=== PATIENT | male | born 1950 | race Caucasian/White ===

== ENCOUNTER → 2017-08-23 11:58 | Outpatient (CLI) | payer OTHER, SELFPAY ==
--- NOTE | 2017-08-23 12:11 | RAD_ITS ---
STUDY: X-RAY - RIGHT SHOULDER REASON FOR EXAM: Male, 66 years old. Bilateral shoulder pain. TECHNIQUE: 4 view(s) of the shoulder. COMPARISON: None. FINDINGS: There is moderate degenerative arthrosis of the glenohumeral articulation. Normal acromioclavicular joint. Normal acromion. Normal humeral head and visualized proximal humerus. The soft tissue structures are unremarkable. Normal visualized pulmonary apex. RAD/Shoulder min 2 Views IMPRESSION: Moderate degree of osteoarthritis of the glenohumeral joint. Electronically Signed: Brian Toledo MD at 20:37 EDT Tel [phone], Service support ,
--- NOTE | 2017-08-23 12:11 | RAD_ITS ---
STUDY: X-RAY - LEFT SHOULDER REASON FOR EXAM: Male, 66 years old. Bilateral shoulder pain. TECHNIQUE: 4 view(s) of the shoulder. COMPARISON: None. FINDINGS: There is moderate degenerative arthrosis of the glenohumeral articulation. There is widening of the AC joint, with displacement of the clavicle, consistent with a Type III acromioclavicular joint separation. Normal acromion. Normal humeral head and visualized proximal humerus. The soft tissue structures are unremarkable. Normal visualized pulmonary apex. RAD/Shoulder min 2 Views IMPRESSION: Type III left acromioclavicular joint separation. Osteoarthritis of the shoulder joint. Electronically Signed: Brian Toledo MD at 20:35 EDT Tel [phone], Service support ,
== END ==
LOC: HPRAD 11:59 → MTRAD 12:01
PROVIDERS: Family Provider Internal Medicine; PCP Internal Medicine; Visit Provider Internal Medicine
DX: M25.511 Pain in right shoulder (principal); M25.512 Pain in left shoulder
CPT/HCPCS: 73030

== ENCOUNTER → 2017-08-28 13:05 | Outpatient (CLI) | payer OTHER, SELFPAY ==
--- NOTE | 2017-08-28 13:15 | MRI_ITS ---
STUDY: MRI LEFT SHOULDER REASON FOR EXAM: Shoulder pain and limited range of motion for 6 months after injury. TECHNIQUE: Standardized fat and water weighted pulse sequences were obtained in all 3 orthogonal planes. COMPARISON: Radiographs 08/23/2017. FINDINGS: There is supraspinatus tendinosis (T2 sagittal images 5-11) without discrete tendon tear. Normal infraspinatus tendon. Normal subscapularis tendon. Normal teres minor tendon. Normal supraspinatus muscle. Normal infraspinatus muscle. Normal subscapularis muscle. Normal teres minor muscle. There is glenohumeral arthrosis with small marginal osteophytes of the humeral head and partial-thickness chondral loss (T2 coronal images 8-12). Normal humeral head and visualized proximal humerus. Normal biceps labral complex. There is mild tendinosis of the intracapsular long biceps tendon (T2 sagittal image 10). There is a tear of the posterior inferior labrum (proton density axial image 16) with associated paralabral cyst (T2 coronal images 13-17). Normal capsulo- ligamentous complex. There is acromioclavicular arthrosis without elevation of the distal clavicle or substantial joint widening on the MRI scan (T2 sagittal image 7). The coracoclavicular ligaments appear intact. There is a Type II morphology (curved), with a neutral orientation. There is a very small volume of subacromial-subdeltoid bursal fluid (T2 coronal image 10). Normal visualized coracohumeral and coracoacromial ligaments. There is a lipoma in the anterior lateral deltoid muscle (T2 sagittal image 19) measuring 2.1 cm in length. Normal trapezius muscle. MRI/Upper Ext Joint Only(Routine) IMPRESSION: Supraspinatus tendinosis without demonstrated rotator cuff tear. Glenohumeral arthrosis. Mild tendinosis of the long biceps tendon. Posterior inferior labral tear with associated paralabral cyst. Acromioclavicular arthrosis. Very mild subacromial-subdeltoid bursitis. Intramuscular lipoma in the deltoid. Electronically Signed: Edilson Villanueva MD at 14:48 EDT Tel , Service support ,
== END ==
PROVIDERS: Family Provider Internal Medicine; PCP Internal Medicine; Visit Provider Internal Medicine
DX: M25.511 Pain in right shoulder (principal); M25.512 Pain in left shoulder
CPT/HCPCS: 73221

== ENCOUNTER 2017-09-20 08:30 | Outpatient (RCR) | payer OTHER, SELFPAY ==
--- NOTE | 2017-08-27 12:04 | HP.PTEVAL_ITS ---
Patient's Visit Information LITZY PERAZA is a 66 year old M referred to Physical Therapy by Prema Hall NP.KOPSIT with a diagnosis of SPINAL STENOSIS OF LUMBAR REGION WITH NEUROGENIC CLAUDICATION. S/P SX.. Date of Evaluation: 08/27/17 Physical Therapist: Vickie Lozano - Visit Plan Frequency: 2-3x /Week Duration: 4-6 Weeks Plan: MONITOR INCISION. POSTURE CORRECTION/STRENGTHENING, INSTRUCTION IN APPROPRIATE BODY MECHANICS AND ACTIVITY MODIFICATIONS. DLS STARTING WITH A NEUTRAL SPINE PROGRESSING ROM STARTING SEPTEMBER 12 2017 TOLERATED. LUIZ LE ROM , STRETCHING AND STRENGTHENING. HEP INSTRUCTION. - Subjective Subjective: Diagnosis: SPINAL STENOSIS OF THE LUMBAR REGION WITH NEUROGENIC CLAUDICATION. S/P REVISION LUIZ HEMILAMINECTOMY L3 AND L5 AND LUIZ REVISION LAMINECTOMY L4 MICRO 08/05/17. 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 Disability: NO. Present symptoms: LUIZ LOW BACK PAIN. RIGHT HIP, RIGHT THIGH, RIGHT CALF PAIN. INTERMITTENT RIGHT 2ND TOE NUMBNESS. Present since: 6-7 YEARS AGO. Pain Scale: WORST: 2/ 10, LEAST: 0/10. Currently: .5/10. Commenced as a result of: NO APPARENT REASON. Symptoms at onset: BACK. Worse: BENDING, SHOWERING, REACHING DOWN LOW, UP AND DOWN STEPS AT WORK A LOT, WORK, SUDDEN TWIST. Better: ICE, SUPIINE LYING, USE OF BRACE. Disturbed sleep: NO. Previous history/Previous treatment: PT - AQUATIC, SHONDA'S X 3, ABOUT 12 CHIROPRACTIC VISITS. EVEN SOME PAIN IN HIGH SCHOOL IN BACK. 1979 WAS FIRST BACK SURGERY - SLIPPED AND FELL AT WORK AND HERNIATED DISC. Coughing/sneezing/straining: ? Gait: INDEP WITHOUT AD. Difficulty initiating urinatin: NO. Accidents: NO OTHER. Unexplained weight loss: NO. Imaging: NONE SINCE SURGERY. PMH: HTN, NIDDM, LUIZ SHOULDER ROTATOR CUFF TEARS ABOUT DEC 2016 HANGING ON PIPE - UNREPAIRED. ARTHRITIS. HANDS GET REALLY SWOLLEN AND SORE. LEFT SHOULDER CORTISONE SHOTS - MOST RECENT WAS LAST SATURDAY. Recent major surgery: HERNIA REPAIR, LUIZ CTR, RIGHT KNEE ARTHOSCOPIC FOR TORN MENISCUS. - Objective Sitting Posture: POOR. FORWARD HEAD, ROUNDED SHOULDERS AND BACK. Standing Posture: FAIR. Lordosis: REDUCED. Active Correction of posture: NE. Other Observations: INDEP GAIT INTO PT WITHOUT ANY ASSISTIVE DEVICES AND WEARING LUMBAR BRACE. NO GROSS DEVIATIONS NOTED. Motor deficit: LUIZ LE'S 5/5 WITH MMT' ING. RIGHT HIP 4-/5. LEFT HIP 4/5. Sensory deficit: LUIZ LE LIGHT TOUCH SENSATION INTACT AND SYMMETRICAL. ROM deficit: TIGHT LUIZ LE HIP FLEXORS, HAMSTRINGS AND GASTROC SOLEUS COMPLEX'S. Dural Signs: NEGATIVE LUIZ LE DURAL SIGNS. Lumbar mvmt loss: NT. Core strength: POOR. Palpation: INCISION LOOKS GOOD BUT THERE IS A SCAB OF THE DISTAL 1/3 OF THE INCISION WITH MILD REDNESS SURROUNDING. PATIENT HAS NOT NOTICED ANY DRAINAGE. - Goals Goal 1:: DECREASE C/O LBP AND LE SX'S. Goal Time Frame: 4-6 Weeks Goal 2:: IMPROVE BENDING, LIFTING, WALKING, SITTING, STANDING AND WORK FUNCTION Goal Time Frame: 4-6 Weeks Goal 3:: INSTRUCT IN PROPHYLAXIS. Goal Time Frame: 4-6 Weeks - Rehabilitation Potential Rehabilitation Potential: Good - Anticipated Interventions Patient/Client Instruction: Educate patient on: Condition, Plan of Care, Risk Factors, Benefits of Fitness Program For the Purpose of:: To improve self management Therapeutic Exercise to Include: Strength training, Endurance training, Body mechanics, Postural training, Flexibilty training, Gait and locomotor training, Dynamic Lumbar Stabilization For the Purpose of:: To improve ability of physical actions for home/community/ work/leisure Cryotherapy (ice pack, ice massage): Yes For the Purpose of:: To decrease pain, To decrease swelling/inflammation Thank you for the opportunity to evaluate your patient. For Medicare and Medicare HMO plans, please review the plan of care and approve it. It will need to be FAXED BACK to us at [phone] for Medicare purposes. Please let me know if there are questions or concerns regarding this plan of care. Physician Signature: Date:
--- NOTE | 2018-02-13 13:02 | HP.PT.NRP ---
HP - Discharge Summary (1) - Patient Information LITZY PERAZA was seen in my office for initial evaluation on 08/27/17. The following Plan of Care was established for this patient: Initial Frequency: 2-3x /Week Initial Duration: 4-6 Weeks - Anticipated Interventions Patient/Client Instruction: Educate patient on: Condition, Plan of Care, Risk Factors, Benefits of Fitness Program For the Purpose of:: To improve self management Therapeutic Exercise to Include: Strength training, Endurance training, Body mechanics, Postural training, Flexibilty training, Gait and locomotor training, Dynamic Lumbar Stabilization For the Purpose of:: To improve ability of physical actions for home/community/work/leisure Cryotherapy (ice pack, ice massage): Yes For the Purpose of:: To decrease pain, To decrease swelling/inflammation This patient was last seen in our office 09/20/17. Pertinent comments regarding their Physical therapy will appear below: This patient has not returned to Physical Therapy and is appropriate to return to MD for further follow-up as needed. At this point I will be discontinuing this patient from physical therapy. I would be happy to see this patient again in the future if found appropriate by the physician. Thank you! Vickie Lozano
== END 2017-09-20 19:00 | disposition home or self-care (01) ==
LOC: PT 08:30
PROVIDERS: Family Provider Internal Medicine; PCP Internal Medicine; Visit Provider Nurse Practitioner Acute Care
DX: M48.062 Spinal stenosis, lumbar region with neurogenic claudication (principal)
CPT/HCPCS: 97110; 97162; 97530

== ENCOUNTER → 2018-06-24 06:35 | Outpatient (CLI) | payer OTHER, SELFPAY ==
[2018-06-20 12:57] VITALS: BMI 34.2
--- NOTE | 2018-06-24 06:36 | ECHOD_ITS ---
Reason For Study: ARRHYTHMIA Procedure This was a 2D Doppler, Color Flow transthoracic echocardiogram. Exam performed in department. Left Ventricle Normal LV size. Left ventricular systolic function is normal. The estimated ejection fraction is 55 %. Transmitral and pulmonary venous doppler flow suggestive of impaired relaxation of left ventricle. Stage 1 diastolic dysfunction. No regional wall motion abnormalities noted. Right Ventricle Normal RV size. Normal systolic function. Atria Normal left atrium. Normal right atrium. Mitral Valve Normal mitral valve. Tricuspid Valve Normal tricuspid valve. Aortic Valve Normal aortic valve. Pulmonic Valve Normal pulmonic valve. Great Vessels Normal aortic root. The pulmonary artery is normal size. Normal inferior vena cava. Pericardium/Pleural No pericardial effusion. MMode/2D Measurements & Calculations LVIDd: 5.1 cm IVSd: 0.97 cm Ao root diam: 3.1 cm LVIDs: 3.4 cm LVPWd: 1.0 cm RVDd: 3.6 cm FS: 32.3 % LAV(MOD-sp2): 63.8 ml EDV(MOD-sp4): 108.0 ml EDV(MOD-sp2): 68.3 ml ESV(MOD-sp4): 44.9 ml EF(MOD-sp2): 57.4 % EF(MOD-sp4): 58.4 % SV(MOD-sp4): 63.1 ml SV(MOD-sp2): 39.2 ml LA A4 area: 14.7 cm2 LA dimension(2D): 4.0 cm RA A4 area: 15.6 cm2 Time Measurements MV dec time: 0.23 sec Doppler Measurements & Calculations MV E max omkar: 66.1 cm/sec Lat Peak E' Omkar: 7.7 cm/sec Med Peak E' Omkar: 7.5 cm/sec MV A max omkar: 74.4 cm/sec E/E' lat: 8.6 E/E' med: 8.8 MV E/A: 0.89 Ao V2 max: 119.6 cm/sec LV V1 max: 90.9 cm/sec PA V2 max: 97.4 cm/sec Ao max P.7 mmHg LV V1 max P.3 mmHg PI dec slope: 115.8 cm/sec2 TR max omkar: 263.2 cm/sec TR max P.7 mmHg Interpretation Summary Normal LV size. Left ventricular systolic function is normal. The estimated ejection fraction is 55 %. Stage 1 diastolic dysfunction. Ordering Physician: Aristides Currie Referring Physician: Prema Perez Performed By: Selena Larsen, ROMA, RVT
--- NOTE | 2018-06-24 13:49 | STRESSREP_ITS ---
Stress Test Report Exercise myocardial perfusion stress test. 67-year-old male with a history of chest pain. Medications aspirin losartan and amlodipine. Stress protocol. The resting EKG demonstrates normal sinus rhythm with a rate of 63 bpm normal intervals are noted resting blood pressure 7 and 30 over 80 mmHg. The patient exercised to consider regular Jose protocol for a total duration of 6 minutes with a maximum heart rate attained was 134 bpm which was 86% of maximal predicted heart rate the maximum workload was 7 metabolic equivalents. At rest with no ST or T wave changes noted to suggest ischemia at peak exercise upsloping ST changes only were noted with intermediate criteria for ischemia. No clinical angina was noted. Resting blood pressure 130/80 with a peak blood pressure 190/88 mmHg. Rate pressure product was 25,400. Myocardial perfusion protocol. 11.5 mCi of technetium 99m sestamibi was injected at rest. The patient exerci sed according to regular Jose protocol for a total duration of 6 minutes. At peak exercise 36.0 mCi of technetium 99m sestamibi was injected and stress images were obtained stress and rest images were reconstructed and compared in the short axis vertical and horizontal long axis. Gated images were also obtained for next Perfusion SPECT analysis: Review of the images demonstrate normal uptake of tracer noted in all areas of the myocardium. The resting images demonstrate normal uptake of tracer noted in all areas of myocardium. No areas of reversibility and will suggest ischemia and no previous infarct is noted. The gated ejection fraction is noted to be 60%. Conclusion: Normal myocardial perfusion stress test at a moderate workload. Preserved ejection fraction.
== END ==
PROVIDERS: Family Provider Internal Medicine; PCP Internal Medicine; Referring Provider Internal Medicine Cardiovascular Disease; Visit Provider Internal Medicine Cardiovascular Disease
DX: I47.1 Supraventricular tachycardia (principal); R07.9 Chest pain, unspecified
CPT/HCPCS: 78452; 93017; 93306; A9500; A4216

== ENCOUNTER → 2018-06-30 13:05 | Outpatient (CLI) | payer OTHER, SELFPAY ==
[2018-06-20 12:57] VITALS: BMI 34.2
--- NOTE | 2018-06-30 13:08 | RAD_ITS ---
STUDY: X-RAY - RIGHT KNEE REASON FOR EXAM: Male, 67 years old. Pain. TECHNIQUE: 4 view(s) of the knee, 2 of which are labeled as weightbearing. COMPARISON: None. FINDINGS: There is periarticular spurring of the femoral condyles. There is periarticular spurring of the medial tibial plateau and borderline spurring of the medial tibial spine. Normal visualized proximal fibula. There is degenerative periarticular spurring at the base and apex of the patella. There is no demonstrated destructive osseous lesion or acute fracture. There is degenerative arthrosis of the medial femorotibial compartment with mild to moderate joint space narrowing. Normal lateral femorotibial compartment. There is borderline degenerative narrowing of the patellofemoral articulation. Normal proximal tibiofibular articulation. There is a small soft tissue prominence in the suprapatellar region suggesting a very small volume joint effusion. The soft tissue structures are unremarkable. RAD/Knee 4 or More Views IMPRESSION: Tricompartmental degenerative arthrosis of the right knee, as described. Very small joint effusion present. Electronically Signed: Ha Hinton MD at 19:59 EST , Service support ,
--- NOTE | 2018-06-30 13:09 | RAD_ITS ---
STUDY: X-RAY - SACROILIAC JOINTS REASON FOR EXAM: Male, 67 years old. Low back pain. TECHNIQUE: 3 view(s) of the sacroiliac joints were obtained. COMPARISON: AP pelvis and additional views of the bilateral hips February 12, 2017; MRI lumbar spine September 10, 2013 FINDINGS: There is borderline narrowing with mild cortical sclerosis of the lateral sacroiliac joints, consistent with degenerative osteoarthritic changes. Well-corticated erosive change suggested at the superomedial margin of the left sacrum. There is no demonstrated osseous destructive process or acute fracture. Normal visualized iliac bones. Degenerative changes again seen in the lower lumbar spine. Possible L4-5 as well as first sacral laminectomies since the previous study. There are multiple calcified phleboliths. RAD/S-I Jts 3 or More Views IMPRESSION: 1. Possible L4-5 as well as for sacral laminectomies since the previous exam. Correlation with surgical history needed. 2. Well-corticated erosive change suggested at the superomedial margin of the left sacrum. 3. Mild osteoarthritic changes of the bilateral sacroiliac joints. Electronically Signed: Ha Hinton MD at 15:12 EST , Service support ,
== END ==
PROVIDERS: Family Provider Internal Medicine; PCP Internal Medicine; Visit Provider Internal Medicine
DX: M25.561 Pain in right knee (principal); M53.3 Sacrococcygeal disorders, not elsewhere classified
CPT/HCPCS: 72202; 73564

== ENCOUNTER → 2019-04-23 07:24 | Outpatient (CLI) | payer OTHER, SELFPAY ==
[2018-11-11 12:47] VITALS: BMI 34.0
[2019-04-23 07:35] LABS: Bacteria 0 SEEN /hpf (None Seen); Mucous, Urine 0 SEEN /hpf (<or=2+)
[2019-04-23 08:09] LABS: Color, Urine Yellow (Yellow); Glucose, Dipstick Normal (Normal); Ketone-Dipstick 5 mg/dl (Negative); Leukocyte Esterase-Dipstick 25 /ul (Negative); Nitrite-Dipstick Negative (Negative); Occult Blood-Urine 10 /ul (Negative); Protein-Dipstick 30 mg/dl (Negative); Urine Bilirubin Dipstick Negative (Negative); Urine Clarity Sl. Cloudy (Clear); Urine Urobilinogen Normal (Normal)
[2019-04-23 08:11] LABS: Absolute Lymphocyte Count 1.35 X10^3/uL (0.83-4.51); Absolute Neutrophil Count 5.1 X10^3/uL (2.0-7.7); Basophil# 0.02 X10^3/uL; Basophil% 0.3 % (0-1); Eosinophil# 0.14 X10^3/uL; Hematocrit 44.5 % (40-54); Hemoglobin 14.8 g/dL (13.0-16.5); Lymphocyte # 1.35 X10^3/ul (4.0); Lymphocyte % 18.9 % (19-41); Mean Corp Hgb Conc 33.3 g/dL (32-36); Mean Corpuscular Hgb 29.4 pg (27.0-32.0); Mean Corpuscular Volume 88.5 fL (80-94); Monocyte# 0.52 X10^3/uL; Monocyte% 7.3 % (0-10); NRBC Flagged by Analyzer 0 % (0-5); Neutrophil # 5.08 X10^3/uL (2.7-7.7); Neutrophil % 71.1 % (47-70); Platelet Count 209 K/mm3 (150-450); RBC Distribution Width CV 13.1 % (11.6-14.6); RBC Distribution Width SD 42.1 fl (35.1-43.9); Red Blood Count 5.03 M/mm3 (4.6-6.2); White Blood Count 7.1 K/mm3 (4.4-11.0)
[2019-04-23 08:18] LABS: Red Blood Cells-Urine 0-5 SEEN /hpf (0-5); Squamous Epithelial Cells - UA 0-5 SEEN /hpf (0-5); White Blood Cells 5-10 SEEN /hpf (0-5)
[2019-04-23 08:34] LABS: Microalbumin:Creatinine Ratio 44.2 mg/g CRE (<30 mg/g CRE)
[2019-04-23 08:49] LABS: ALB/GLOB Ratio 1.1 RATIO (0.9-2.4); AST(SGOT) 17 U/L (15-37); Alanine Aminotransfer ALT/SGPT 42 U/L (16-61); Albumin, Serum 4.1 g/dL (3.2-5.0); Alkaline Phosphatase 95 U/L (45-117); Anion Gap 5 (5-15); BUN 16 mg/dL (7-18); BUN/Creat Ratio 13.9 RATIO (10-20); Calcium,Total 9.7 mg/dL (8.5-10.1); Chloride 105 mmol/L (98-107); Creatinine, Serum 1.15 mg/dL (0.70-1.30); EST Glomerular Filtration Rate 68 mL/min (>60); Est Glom Filt Rate - Afr Amer 82 mL/min (>60); Globulin 3.8 g/dL (2.2-4.2); Glucose 129 mg/dL (74-106); PSA,Total - Annual Screen 3.61 ng/mL (0.00-4.00); Potassium 3.9 mmol/L (3.5-5.1); Protein, Total 7.9 g/dL (6.4-8.2); Sodium Level 140 mmol/L (136-145); Thyroid Stim Hormone (TSH) 1.68 uIU/mL (0.358-3.74)
[2019-04-24 15:55] LABS: CHOLESTEROL TOTAL 142 mg/dL (100-199); HDL-C 50 mg/dL (>39); HDL-P TOTAL 34.8 umol/L (>=30.5); SMALL LDL-P 255 nmol/L (<=527); TRIGLYCERIDES 103 mg/dL (0-149)
[2019-04-24 16:12] LABS: INSULIN RESISTANCE SCORE 44 (<=45); LDL SIZE 20.7 nm (>20.5); LDL-C 71 mg/dL (0-99); LDL-P 718 nmol/L (<1000)
== END ==
PROVIDERS: Family Provider Internal Medicine; PCP Internal Medicine; Referring Provider Internal Medicine; Visit Provider Internal Medicine
DX: R73.09 Other abnormal glucose (principal); E78.00 Pure hypercholesterolemia, unspecified; Z12.5 Encounter for screening for malignant neoplasm of prostate
CPT/HCPCS: 36415; 80053; 80061; 81001; 82043; 82570; 83704; 84153; 84443; 85025; G0103

== ENCOUNTER → 2019-05-08 06:15 | Outpatient (CLI) | payer OTHER, SELFPAY ==
[2018-11-11 12:47] VITALS: BMI 34.0
--- NOTE | 2019-05-08 09:21 | STRESSREP_ITS ---
Stress Test Report Exercise myocardial perfusion stress test. 68-year-old man with a history of chest pain. Medications: Aspirin, losartan, amlodipine. Stress protocol: Resting EKG demonstrates normal sinus rhythm with a rate of 67 bpm normal intervals are noted resting blood pressure 736/80 4 mmHg. The patient exercised according to regular Jose protocol for total duration of 7 minutes the maximum heart rate attained was 131 bpm which was 85% of maximum predicted heart rate the maximum workload was 8.5 metabolic equivalents. Patient maintained sinus rhythm throughout the recording. At rest there were no ST or T wave changes noted suggest ischemia peak exercise nonspecific ST-T wave changes were noted. The test was terminated due to leg discomfort. The peak blood pressure was 168/74 mmHg with a rate pressure product was 20,600. Myocardial perfusion protocol. 11.0 mCi of technetium 99m sestamibi was injected at rest. The patient exerci sed according to regular Jose protocol for a total duration of 7 minutes at peak exercise 33.0 mCi of technetium 99m sestamibi was injected stress images were obtained stress and rest images were reconstructed and compared in the short axis vertical and horizontal long axis. Gated images were also obtained Perfusion SPECT analysis: Review of the stress images demonstrate normal uptake of tracer noted in all areas of myocardium the rest images similar demonstrate normal uptake of tracer noted in all areas of myocardium. No reversibility is no suggest ischemia no previous infarct is noted Gated SPECT analysis: The gated ejection fraction is noted to be 55%. Conclusion: Normal exercise myocardial perfusion stress test at a moderate workload. Preserved ejection fraction.
== END ==
PROVIDERS: Family Provider Internal Medicine; PCP Internal Medicine; Referring Provider Internal Medicine; Visit Provider Internal Medicine
DX: R07.89 Other chest pain (principal)
CPT/HCPCS: 78452; 93017; A9500; A4216

== ENCOUNTER → 2020-06-17 09:20 | Outpatient (CLI) | payer MEDICARE, SELFPAY ==
[2020-06-17 07:50] VITALS: BMI 34.7
--- NOTE | 2020-06-17 09:26 | RAD_ITS ---
STUDY: X-RAY CHEST REASON FOR EXAM: Male, 69 years old. Chest pain for 2 months. Atrial fibrillation. TECHNIQUE: PA and lateral views of the chest. COMPARISON: 02/08/2015 FINDINGS: The lungs are clear and expanded. There is no demonstrated pleural abnormality. Normal size heart. Normal mediastinum and mark. Normal visualized pulmonary arteries. Normal visualized aortic arch and descending thoracic aorta. There are diffuse degenerative changes of the visualized thoracic spine. Normal visualized ribs, clavicles, and shoulders. There is no demonstrated abnormality of the visualized soft tissue structures of the upper abdomen. RAD/Chest PA and Lateral IMPRESSION: Degenerative changes, as described above. No demonstrated acute cardiopulmonary process. Electronically Signed: Alan Scanlon DO at 23:20 EST Tel [phone], Service support ,
[2020-06-17 09:57] LABS: Hematocrit 44.4 % (40-54); Hemoglobin 14.5 g/dL (13.0-16.5); Mean Corp Hgb Conc 32.7 g/dL (32-36); Mean Corpuscular Hgb 28.7 pg (27.0-32.0); Mean Corpuscular Volume 87.9 fL (80-94); Mean Platelet Vol. 10.6 fl (6.2-12.0); Platelet Count 208 K/mm3 (150-450); RBC Distribution Width CV 13.4 % (11.6-14.6); RBC Distribution Width SD 42.8 fl (35.1-43.9); Red Blood Count 5.05 M/mm3 (4.6-6.2); White Blood Count 5.6 K/mm3 (4.4-11.0)
[2020-06-17 10:28] LABS: Vitamin B12 550 pg/mL (211-911)
[2020-06-17 11:25] LABS: AST(SGOT) 26 U/L (15-37); Alanine Aminotransfer ALT/SGPT 51 U/L (16-61); Albumin, Serum 4.1 g/dL (3.2-5.0); Alkaline Phosphatase 114 U/L (45-117); Anion Gap 5 (5-15); BUN 18 mg/dL (7-18); BUN/Creat Ratio 15.5 RATIO (10-20); Calcium,Total 9.4 mg/dL (8.5-10.1); Chloride 108 mmol/L (98-107); Creatinine, Serum 1.16 mg/dL (0.70-1.30); EST Glomerular Filtration Rate 67 mL/min (>60); Est Glom Filt Rate - Afr Amer 81 mL/min (>60); Globulin 4.2 g/dL (2.2-4.2); Glucose 118 mg/dL (74-106); Protein, Total 8.3 g/dL (6.4-8.2); Sodium Level 140 mmol/L (136-145); Thyroid Stim Hormone (TSH) 1.66 uIU/mL (0.358-3.74)
[2020-06-18 20:07] LABS: Free Kappa Light Chains 21.8 mg/L (3.3-19.4); Free Lambda Light Chains 13.4 mg/L (5.7-26.3)
== END ==
PROVIDERS: Psychiatry & Neurology Neurology; PCP Internal Medicine; Referring Provider Internal Medicine Cardiovascular Disease; Visit Provider Internal Medicine Cardiovascular Disease
DX: R07.9 Chest pain, unspecified (principal); I10 Essential (primary) hypertension; G62.9 Polyneuropathy, unspecified; G56.03 Carpal tunnel syndrome, bilateral upper limbs
CPT/HCPCS: 36415; 71046; 80053; 82607; 82746; 83883; 84443; 85027

== ENCOUNTER 2020-06-27 08:50 | Day surgery (SDC) | payer MEDICARE, SELFPAY ==
[2020-06-17 07:50] VITALS: BMI 34.7
[2020-06-24 09:52] VITALS: BMI 34.7
--- NOTE | 2020-06-27 06:00 | HP_ITS ---
HPI HPI History of Present Illness Details: LITZY PERAZA, is a 69 M who presents to the office today for a follow-up posthospitalization visit he is a gentleman with a history of minimal coronary artery disease status post cardiac catheterization in 2013. He was sent to [facility] for possible ablation but he decided to pursue conservative means and is now a participant in the node 301 trial which uses Etripamil for PSVT termination. He did undergo a stress test in April where he exercised 6-1/2 minutes without any evidence of ischemia. He tells me that his been diagnosed with Parkinson's but more recently he has noticed that he gets short of breath as well as chest discomfort when he is going up the stairs to denominational. It usually is relieved when he sits down. He also gets it with exertion and is relieved by rest. His physical exam today demonstrates clear lung baugh regular rate and rhythm and no pedal edema. Intake Vital Signs 06/17/20 Height 5 ft 7.5 in 06/17/20 Weight: 225 lb 06/17/20 BMI 34.7 06/17/20 BP 129/78 H 06/17/20 Respiration 16 06/17/20 Pulse 68 06/17/20 Pulse Oximetry (%) 96 Intake Visit Reasons: 1 Y FU (we r/s from 05/17) Allergies ciprofloxacin [From Cipro] Allergy (Severe, Verified 06/16/20 08:52) Rash ciprofloxacin HCl [From Cipro] Allergy (Severe, Verified 06/16/20 08:52) Rash Medications Fluticasone 0.05% [Flonase Nasal Dud[place]] 2 spray NASAL DAILY PRN PRN 02/12/14 [History Confirmed 06/17/20] losartan 50 mg tablet 50 mg PO QDAY 04/30/17 [History Confirmed 06/17/20] amlodipine 10 mg tablet 10 mg PO DAILY 06/20/18 [History Confirmed 06/17/20] rosuvastatin 5 mg tablet 5 mg PO DAILY #30 tab 11/11/18 [History Confirmed 06/17/20] omeprazole 40 mg capsule,delayed release 40 mg PO DAILY cap 05/19/19 [History Confirmed 06/17/20] loratadine 10 mg tablet 10 mg PO DAILY PRN 06/13/20 [History Confirmed 06/17/20] amantadine HCl 100 mg tablet 100 mg PO BID #60 tab 06/16/20 [Rx Confirmed 06/17/20] aspirin 81 mg tablet,delayed release 81 mg PO QDAY #90 tab 06/17/20 [Rx Confirmed 06/17/20] metoprolol succinate 25 mg tablet,extended release 24 hr 25 mg PO DAILY #90 tab 06/17/20 [Rx Confirmed 06/17/20] Ejection fraction %: 55 to 59 [facility] Medical History Tremor (Chronic) Parkinson disease (Suspected) Supraventricular tachycardia (Chronic 06/17/18) Essential (primary) hypertension (Chronic) Hyperlipidemia (Chronic) Arthritis (Chronic) Asthma (Chronic) BPH (benign prostatic hyperplasia) (Chronic) Bilateral carpal tunnel syndrome (Chronic) Chronic back pain (Chronic) Chronic tension type headache (Chronic) DDD (degenerative disc disease) (Chronic) Fatty liver (Chronic) GERD (gastroesophageal reflux disease) (Chronic) Neuropathy (Chronic) Obesity (Chronic) Obstructive sleep apnea (Chronic) Spinal stenosis (Chronic) Type 2 diabetes mellitus (Chronic) Back pain (Inactive) Knee pain (Inactive) Limb weakness (Inactive) Shoulder pain (Inactive) Surgical History History of carpal tunnel release (Resolved) History of herniorrhaphy (Resolved) History of left heart catheterization (Resolved 02/17/14) Previous back surgery (Resolved) Family History Mother CAD (coronary artery disease) Father Cancer Uncle Parkinson's disease Other Alcoholism Arthritis Asthma Bleeding disorder CVA (cerebral vascular accident) Heart disease Hyperlipidemia Hypertension Myocardial infarction Social History (Updated 06/17/20 @ 08:[address] Aristides Currie MD) Smoking Status: Never smoker Electronic Cigarette Use: not used second hand exposure: No alcohol intake: current alcohol intake frequency: a few times a month Alcohol type: beer substance use type: does not use ROS Const Const: Negative for fatigue, weakness, headache(s), frequent falls, difficulty sleeping or excessive sweating Eyes Eyes: Negative for loss of peripheral vision, transient loss of vision, blurry vision, double vision or tunnel vision ENT ENT: Negative for headache(s), dizziness, Nosebleed/epistaxis or balance problems Cardio Chest Pain: Yes (exertional angina ) Character: tightness Location: mid sternal Relieving: rest Palpitations: No Edema: Bilateral (BLE ankle edema) Muscle aches with walking: None Resp Respiratory: Negative for SOB with activity, SOB at rest, SOB orthopnea\SOB lying down, Cough or paroxysmal nocturnal dyspnea GI GI: Negative nausea, vomiting, heartburn or black,tarry stools : Negative for hematuria Musc Musc: Negative for muscle aches/ myalgia, muscle weakness, joint pain or balance problems Skin Skin: Negative non-healing lesions, rash or unusual bruising Neuro Neuro: Positive for other (BLE neuropathy); negative for dizziness, lightheadedness, near syncope, syncope, orthostatic symptoms, frequent falls, headache(s), weakness, blurry vision, double vision or lack of coordination Dean Hematologic/Lymphatic: Negative for easy bleeding or easy bruising Endo Endo: Negative for fatigue, excessive sweating or increased thirst/drinking Psych Psych: Negative for anxiety or depression Allergy Allergy/Immunology: Negative for hives, Negative for rash Cardiology Exam Const Appearance: cooperative, healthy appearing, no acute distress, well developed and well groomed Nutritional Appearance: average body habitus and well nourished Orientation: alert, awake and oriented x3 Head Head: normal to inspection, normocephalic and atraumatic Ears: hearing grossly normal bilaterally and external ears normal Nose: external nose normal, nares normal, nasal mucous membranes and turbinates normal, septum normal, no nasal discharge Face and Sinus: face symmetric Mouth: oral mucosae normal, tongue normal, oropharynx normal and moist mucous membranes Teeth and gingiva: dentition normal Throat: posterior oropharynx normal, tonsils normal and uvula midline Eyes General: appearance normal, both eyes and all related structures Eyelids: eyelids normal Conjunctivae: conjunctivae normal Pupils: PERRL, normal by confrontation and accommodation normal EOM: EOM intact bilaterally Neck Neck: normal visual inspection, trachea midline and no JVD JVD: +5 Carotids: normal carotid upstroke and bounding pulses Chest Chest inspection: normal inspection of the chest, symmetric chest movement and normal respiratory effort Auscultation: Bilateral: Clear to Auscultation Cardio Palpation: normal PMI Rate: regular rate Rhythm: regular rhythm Heart sounds: S1 normal, S2 normal and normal, physiologic split S2; negative rub, gallop or murmur GI GI: normal to inspection, soft, no hepatosplenomegaly and bowel sounds present Neuro General: alert, awake, oriented x3, gait normal, moves all extremities and no focal sensory deficit Skin Skin: no rashes or lesions noted Extremities Pulses: Normal: Right Femoral Pulse, Left Femoral Pulse, Right Dorsalis Pedis Pulse, Left Dorsalis Pedis Pulse, Right Posterior Tibial Pulse, Left Posterior Tibial Pulse, Right Radial Pulse, Left Radial Pulse Lower Extremity Edema: None: Bilateral Musculoskel Musculoskeletal: No joint tenderness Psych Psychological: normal affect Assessment & Plan 1. Exertional chest pain R07.9 Plan He does have exertional chest discomfort which appears to be fairly classic for angina. He did undergo a stress test to a moderate workload a year ago and his echocardiogram also demonstrated preserved ejection fraction. At this time my recommendation will be to start Toprol-XL 25 mg a day and consider him for a left heart catheterization. The risk benefits alternatives have been explained to him he understands and agrees to proceed. Orders Orders: 12 Lead EKG performed by [facility] Today Left Heart Cath/COR/LV Percut Today Chest PA and Lateral Today 2. Essential (primary) hypertension I10 Plan He does have a history of hypertension which is well controlled at this particular time I would not recommend that we make any other major changes. Orders Orders: Chest PA and Lateral Today 3. Hyperlipidemia E78.5 Plan He does have a history of hyperlipidemia. He is on low intensity statin. I will suggest increasing this to 10 mg a day of atorvastatin. Depending on the findings of the heart catheterization further recommendations will be made. Plan Detail Other Medications New: aspirin (Adult Low Dose Aspirin) 81 mg PO QDAY 90 tabs 3RF metoprolol succinate ER (Toprol XL) 25 mg PO DAILY 90 tabs 3RF Follow Up 6 Months (mmm) Coding Level of Care Code Off vis,est,level 4 Diagnoses Exertional chest pain R07.9 Essential (primary) hypertension I10 Hyperlipidemia E78.5 Coding Level of Care Code Off vis,est,level 4 Diagnoses Exertional chest pain R07.9 Essential (primary) hypertension I10 Hyperlipidemia E78.5 Supplemental Info Supplemental Information Labs LDL Cholesterol 71 mg/dL (0-99) 04/23/19 HDL Cholesterol 50 mg/dL (>39) 04/23/19 Diagnostics Echocardiogram 06/24/18 Stress Test Nuclear Medicine 05/08/19 Stress Test 05/08/19
--- NOTE | 2020-06-27 10:45 | CL.D_ITS ---
Patient Name: LITZY PERAZA Study Date: 06/27/2020 Performing: Aristides Currie MD Ht: 67.32 inches 171 cm : 1950 Wt: 224.87 lbs 102 kg Age: 69 Gender: male BSA: 2.13 PROCEDURE(S) PERFORMED TH45-OXR/COR/LV CLINICAL PROFILE AND INDICATIONS Indications: Suspected CAD Heart Failure: None Stress/Imaging Stress/Image Study Performed: No CAD Presentations: Stable angina. CONCLUSIONS Non obstructive coronary arteries RECOMMENDATIONS Medical therapy DESCRIPTION OF PROCEDURE The patient arrived to the procedure lab. The risks and benefits of the procedure as well as a full d escription of our services here and current unavailability of surgical backup were fully explained to the patient and/or their significant other prior to the catheterization. The Timeout was completed, verifying the correct patient and procedure. The patient's procedural site was prepped and draped in the usual fashion. Local anesthetic was given subcutaneously to right radial region with Lidocaine 2% . Using a modified Seldinger technique, arterial access was obtained via the right radial artery, a 6 Fr sheath was inserted. Left Coronary Artery selective angiography was performed in multiple views u sing a 5 Fr. 4.0 [place] catheter.The arterial sheath was pulled and a TR Band was applied for hemostas is CORONARY ANGIOGRAPHY DOMINANCE: Right Dominant LEFT HEART ASSESSMENT Left Ventricular Ejection Fraction: by LV Gram 55 % Normal LV wall motion Normal Left Ventricular systolic function LEFT MAIN: Mild luminal irregularities LEFT ANTERIOR DESCENDING ARTERY: Mild luminal irregularities CIRCUMFLEX ARTERY: Mild luminal irregularities RIGHT CORONARY ARTERY: Angiographically normal OSTIAL RCA: Aberrantly take off COMPLICATIONS PROCEDURE MEDICATIONS Versed 1 mg IV Fentanyl 50 mcg IV Oxygen: 2 L/min via nasal cannula SUMMARY OF HEMODYNAMIC DATA Time AIR REST ECG 09:19:39 AO 129/56 (83) SA 10:20:22 AO 107/63 (82) 10:21:35 Signed By Aristides Currie MD On 06/27/2020 10:44:02 AM Aristides Currie MD
== END 2020-06-27 12:45 | disposition home or self-care (01) ==
PROVIDERS: PCP Internal Medicine; Referring Provider Internal Medicine Cardiovascular Disease; Visit Provider Internal Medicine Cardiovascular Disease
DX: R07.9 Chest pain, unspecified (principal); R06.02 Shortness of breath; G20 Parkinson's disease; E11.9 Type 2 diabetes mellitus without complications; E78.5 Hyperlipidemia, unspecified; I10 Essential (primary) hypertension; N40.0 Benign prostatic hyperplasia without lower urinary tract symptoms; G47.33 Obstructive sleep apnea (adult) (pediatric); Z79.82 Long term (current) use of aspirin; Z88.1 Allergy status to other antibiotic agents
CPT/HCPCS: 93454; 99152; 99153; J7040; Q9967; C1769; C1894

== ENCOUNTER → 2020-07-05 13:05 | Outpatient (CLI) | payer MEDICARE, SELFPAY ==
[2020-06-24 09:52] VITALS: BMI 34.7
--- NOTE | 2020-07-05 13:06 | MRI_ITS ---
STUDY: MRI BRAIN WITH AND WITHOUT CONTRAST REASON FOR EXAM: Male, 69 years old. [place] PARKINSONS, L HAND SHAKING TECHNIQUE: Standardized multiplanar fat and water weighted pulse sequences were obtained. 20CC IV DOTAREM was administered for the contrast portion of the examination. COMPARISON: None. FINDINGS: There is mild cerebral atrophy with widening of the extra-axial spaces and ventricular dilatation. Normal white matter tracts of the supratentorial brain. There is no evidence for recent intracranial ischemia or other cause of cytotoxic edema on diffusion weighted imaging (DWI). Normal T2* images of the brain without demonstrated susceptibility artifact. There is no demonstrated hemosiderin stain. Midbrain iron stores are depleted which can be seen in Parkinson''s disease. Normal bilateral basal ganglia. Normal thalami. There is no extra-axial fluid accumulation. Normal flow voids within the major intracranial circulation suggesting patency by spin echo criteria. Normal venous enhancement. There is no enhancing intra-axial or extra-axial abnormality. Normal sella turcica, pituitary gland, infundibular stalk, optic chiasm and hypothalamus. Normal tectal plate and pineal gland. Normal midbrain, lilo and medulla. Normal cerebellum. Normal basal cisterns. Normal bilateral temporal bones. Normal bilateral internal auditory canals. No demonstrated orbital abnormality, within the constraints of a routine brain study. Normal visualized paranasal sinuses. Normal calvarium and skull base. Normal visualized soft tissue structures. Normal visualized upper cervical spine. MRI/Brain W/WO Contrast IMPRESSION: Involutional changes of the brain, as described above. Midbrain iron stores are depleted which can be seen in Parkinson''s disease. Electronically Signed: Brandan Bravo MD at 15:06 EST Tel , Service support ,
== END ==
PROVIDERS: PCP Internal Medicine; Referring Provider Psychiatry & Neurology Neurology; Visit Provider Psychiatry & Neurology Neurology
DX: G20 Parkinson's disease (principal); G31.84 Mild cognitive impairment of uncertain or unknown etiology
CPT/HCPCS: 70553; A9575

== ENCOUNTER → 2020-08-04 10:40 | Outpatient (CLI) | payer MEDICARE, SELFPAY ==
[2020-06-24 09:52] VITALS: BMI 34.7
[2020-08-04 11:10] LABS: Bacteria 0 SEEN /hpf (None Seen); Mucous, Urine 0 SEEN /hpf (<or=2+); Red Blood Cells-Urine 0 SEEN /hpf (0-5)
[2020-08-04 11:33] LABS: Color, Urine Yellow (Yellow); Glucose, Dipstick Normal (Normal); Ketone-Dipstick Negative (Negative); Leukocyte Esterase-Dipstick 25 /ul (Negative); Nitrite-Dipstick Negative (Negative); Occult Blood-Urine Negative /ul (Negative); Protein-Dipstick Negative (Negative); Specific Gravity, Urine 1.015 (1.002-1.030); Urine Bilirubin Dipstick Negative (Negative); Urine Clarity Clear (Clear); Urine Urobilinogen Normal (Normal)
[2020-08-04 11:38] LABS: Squamous Epithelial Cells - UA 0-5 SEEN /hpf (0-5); White Blood Cells 0-5 SEEN /hpf (0-5)
[2020-08-04 11:39] LABS: Absolute Lymphocyte Count 1.38 X10^3/uL (0.83-4.51); Absolute Neutrophil Count 4.1 X10^3/uL (2.0-7.7); Basophil# 0.02 X10^3/uL; Basophil% 0.3 % (0-1); Eosinophil# 0.16 X10^3/uL; Eosinophils% 2.6 % (0-5); Hematocrit 46.3 % (40-54); Hemoglobin 14.8 g/dL (13.0-16.5); Lymphocyte # 1.38 X10^3/ul (4.0); Lymphocyte % 22.4 % (19-41); Mean Corpuscular Hgb 28.5 pg (27.0-32.0); Mean Platelet Vol. 10.9 fl (6.2-12.0); Monocyte# 0.47 X10^3/uL; Monocyte% 7.6 % (0-10); NRBC Flagged by Analyzer 0 % (0-5); Neutrophil # 4.11 X10^3/uL (2.7-7.7); Neutrophil % 66.8 % (47-70); Platelet Count 191 K/mm3 (150-450); RBC Distribution Width CV 13.2 % (11.6-14.6); RBC Distribution Width SD 43.2 fl (35.1-43.9); White Blood Count 6.2 K/mm3 (4.4-11.0)
[2020-08-04 11:55] LABS: Microalbumin,Random Urine 18.7 mg/L (NO RANGE EST.); Microalbumin:Creatinine Ratio 17.2 mg/g CRE (<30 mg/g CRE)
[2020-08-04 12:11] LABS: Hemoglobin A1c 5.5 % (3.8-5.6)
[2020-08-04 12:14] LABS: ALB/GLOB Ratio 0.9 RATIO (0.9-2.4); AST(SGOT) 22 U/L (15-37); Alanine Aminotransfer ALT/SGPT 50 U/L (16-61); Albumin, Serum 3.8 g/dL (3.2-5.0); Alkaline Phosphatase 108 U/L (45-117); Anion Gap 4 (5-15); BUN 16 mg/dL (7-18); BUN/Creat Ratio 13.6 RATIO (10-20); Calcium,Total 9.4 mg/dL (8.5-10.1); Chloride 106 mmol/L (98-107); Cholesterol 139 mg/dL (200); Creatinine, Serum 1.18 mg/dL (0.70-1.30); EST Glomerular Filtration Rate 65 mL/min (>60); Est Glom Filt Rate - Afr Amer 79 mL/min (>60); Globulin 4.1 g/dL (2.2-4.2); Glucose 108 mg/dL (74-106); High Density Lipoprotein 45 mg/dL; Potassium 4.2 mmol/L (3.5-5.1); Protein, Total 7.9 g/dL (6.4-8.2); Sodium Level 139 mmol/L (136-145); Thyroid Stim Hormone (TSH) 1.33 uIU/mL (0.358-3.74); Triglycerides 125 mg/dL; Very Low Density Lipoprotein 25 mg/dL (5-40)
== END ==
PROVIDERS: PCP Internal Medicine; Referring Provider Internal Medicine; Visit Provider Internal Medicine
DX: R73.09 Other abnormal glucose (principal); E78.00 Pure hypercholesterolemia, unspecified
CPT/HCPCS: 36415; 80053; 80061; 81001; 82043; 82570; 83036; 84443; 85025

== ENCOUNTER → 2020-08-10 13:50 | Outpatient (CLI) | payer MEDICARE, SELFPAY ==
[2020-06-16 08:54] VITALS: BMI 35.0
[2020-06-24 09:52] VITALS: BMI 34.7
--- NOTE | 2020-08-10 15:13 | NEURO ---
NCS and/or EMG Patient Report Ordering Doctor: Joaquin Gallegos DATE OF SERVICE: 08/10/20 Hesham Mojica presents for electrodiagnostic testing of the upper limbs. He reports numbness and tingling in both hands. He does have a history of carpal tunnel release, done bilaterally several years ago. Electrodiagnostic findings: Left median motor nerve demonstrates prolonged distal latency with normal amplitude and reduced conduction velocity. Right median motor responses within normal limits. Ulnar motor nerve demonstrates normal distal latency and amplitude bilaterally with an approximately 25% drop in conduction across the elbow bilaterally. Normal median and ulnar F waves are noted. Prolonged median sensory latency at the wrist bilaterally. Normal ulnar and radial sensory responses. On needle EMG, all muscles tested in the upper limbs as well as the cervical paraspinal showed no evidence of denervation with normal motor unit action potentials. Electrodiagnostic impression: This is an abnormal study in the upper limbs. 1. Electrodiagnostic findings demonstrate bilateral median mononeuropathy. This is consistent with a moderate right carpal tunnel syndrome and a mild left carpal tunnel syndrome. 2. Electrodiagnostic findings demonstrate bilateral ulnar neuropathy, consistent with a mild to moderate bilateral cubital tunnel syndrome. 3 there is no electrodiagnostic evidence for cervical radiculopathy. If there are any further questions, please do not hesitate to contact me.
== END ==
PROVIDERS: PCP Internal Medicine; Referring Provider Psychiatry & Neurology Neurology; Visit Provider Psychiatry & Neurology Neurology
DX: G56.03 Carpal tunnel syndrome, bilateral upper limbs (principal)
CPT/HCPCS: 95886; 95913

== ENCOUNTER → 2020-08-24 09:29 | Outpatient (CLI) | payer MEDICARE, SELFPAY ==
[2020-08-16 15:42] VITALS: BMI 35.0
[2020-08-26 16:08] LABS: Albumin 3.6 g/dL (2.9-4.4); Alpha-1-Globulins 0.2 g/dL (0.0-0.4); Alpha-2-Globulins 0.8 g/dL (0.4-1.0); Gamma Globulin 1.2 g/dL (0.4-1.8); Immunoglobulin A 336 mg/dL (61-437); Immunoglobulin G 1005 mg/dL (603-1613); Immunoglobulin M 298 mg/dL (20-172); PROEL- TOTAL PROTEIN 7.1 g/dL (6.0-8.5)
[2020-08-26 21:05] LABS: Immunofixation Urine Comment: (.)
== END ==
PROVIDERS: PCP Internal Medicine; Referring Provider Psychiatry & Neurology Neurology; Visit Provider Psychiatry & Neurology Neurology
DX: G62.9 Polyneuropathy, unspecified (principal)
CPT/HCPCS: 36415; 82784; 84165; 86334; 86335

== ENCOUNTER 2020-09-13 08:00 | Outpatient (RCR) | payer MEDICARE, SELFPAY ==
[2020-08-16 15:42] VITALS: BMI 35.0
--- NOTE | 2020-08-29 15:25 | HP.PTEVAL ---
Patient's Visit Information LITZY PERAZA is a 69 year old M referred to Physical Therapy by Dr. Joaquin Gallegos MD with a diagnosis of Parkinson's Disease. Date of Evaluation: 08/29/20 Physical Therapist: ALLEN Mccain - Visit Plan Frequency: 1-2x /Week Duration: 4 Weeks Plan: 1-2X/ week for HEP instruction for balance, posture, gait mechanics, dual tasking, endurance. - Subjective Pt wanted to come to PT for PD. He was dx in May and has been going on since November when he noticed the L hand tremor. He has noticed that his L leg might have slight tremor in the L leg but not much. He notices that he walks really slow. 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 He uses the bike at the high school but does not break sweat. His balance has been pretty good. It is harder to quat down to the ground. He is still driving and is retired. No falls. He does ok on stairs. He struggles with rolling over in bed. He does have back pain and stiffness and has had issues with his back for years. He gets soreness when sitting for long periods of time. He is sleeping ok. He is on PD meds.... tried a low dose and it was bumped up. He still feels weakness in L arm. He is having no freezing episodes. Pt is having some ST memory issues - Pain back pain Pain Intensity (Out of 10): 0 Comment: upon walking up 4/10 pain - Objective Gait: Walks with normal gait pattern with sligh dicoordination on the L LE. No arm swing on the L and minimal on the R. He has no trunk rotation with gait. FW head posture and rounded shoulders, flexed trunk. Posture: fw head, rounded shoulders, flexed trunk. LE MMT: B hip flex, hip abd, Knee flex and knee ext 4+/5. Bridge... 1/4 normal ROM with increase pain. FGA: 25/30. Standing alternating legs and arms with counting by 2;.... able to get to 20 - Balance Scores Functional Gait Assessment Score: 25 % Disability: 16.6700 - Goals Goal 1:: I HEP for posture, strength, balance, dual tasking Goal Time Frame: 4-6 Weeks Goal 2:: Demonstrate improved posture in the clinic Goal Time Frame: 4-6 Weeks Goal 3:: Demonstrate improved posture with gait and increased arm swing B. Goal Time Frame: 4-6 Weeks - Rehabilitation Potential Rehabilitation Potential: Good - Anticipated Interventions Patient/Client Instruction: Educate patient on: Condition, Plan of Care For the Purpose of:: To improve ability to perform ADL's, To increase tolerance to activity/condition/position, To improve performance and independence with ADL's, To decrease level of supervision to perform tasks, To improve ability of physical actions for home/community/work/leisure, To improve gait and locomotor functions, To improve balance Therapeutic Exercise to Include: Strength training, Endurance training, Balance training, Coordination, Body mechanics, Postural training, Flexibilty training, Gait and locomotor training, Neuromotor development, Active ROM For the Purpose of:: To improve muscle performance and motor function, To improve ability to perform ADL's, To increase tolerance to activity/condition/position, To improve performance and independence with ADL's, To improve ability of physical actions for home/community/work/leisure, To improve gait and locomotor functions, To improve health of tissue, To increase flexibility/ROM, To improve endurance, To improve balance, To improve safety with gait Functional Training to Include: Gait training For the Purpose of:: To improve gait and locomotor functions, To improve safety with gait Thank you for the opportunity to evaluate your patient. For Medicare and Medicare HMO plans, please review the plan of care and approve it. It will need to be FAXED BACK to us at [phone] for Medicare purposes. For Medicare only, by signing this I certify the plan of care. Please let me know if there are questions or concerns regarding this plan of care. Physician Signature: Date:
--- NOTE | 2021-01-25 17:42 | HP.PT.NRP ---
LITZY PERAZA was seen in my office for initial evaluation on 08/29/20. The following Plan of Care was established for this patient: Initial Frequency: 1-2x /Week Initial Duration: 4 Weeks Patient/Client Instruction: Educate patient on: Condition, Plan of Care For the Purpose of:: To improve ability to perform ADL's, To increase tolerance to activity/condition/position, To improve performance and independence with ADL's, To decrease level of supervision to perform tasks, To improve ability of physical actions for home/community/work/leisure, To improve gait and locomotor functions, To improve balance Therapeutic Exercise to Include: Strength training, Endurance training, Balance training, Coordination, Body mechanics, Postural training, Flexibilty training, Gait and locomotor training, Neuromotor development, Active ROM For the Purpose of:: To improve muscle performance and motor function, To improve ability to perform ADL's, To increase tolerance to activity/condition/position, To improve performance and independence with ADL's, To improve ability of physical actions for home/community/work/leisure, To improve gait and locomotor functions, To improve health of tissue, To increase flexibility/ROM, To improve endurance, To improve balance, To improve safety with gait Functional Training to Include: Gait training For the Purpose of:: To improve gait and locomotor functions, To improve safety with gait This patient was last seen in our office 09/13/20. Pertinent comments regarding their Physical therapy will appear below: Pt cancelled his last scheduled appointment and did not reschedule. He will be discharged from our care at this time. At this point I will be discontinuing this patient from physical therapy. I would be happy to see this patient again in the future if found appropriate by the physician. Thank you! Mirela Mary, ALLEN Balance/Gait/Functional tests - Balance/Special Test Scores Functional Gait Assessment Score: 25 % Disability: 16.6700 Lower Extremity Functional Score: 41
== END 2020-09-13 19:00 | disposition home or self-care (01) ==
LOC: PT 08:00
PROVIDERS: PCP Internal Medicine; Referring Provider Psychiatry & Neurology Neurology; Visit Provider Psychiatry & Neurology Neurology
DX: G20 Parkinson's disease (principal)
CPT/HCPCS: 97110; 97161

== ENCOUNTER → 2021-02-21 09:45 | Outpatient (CLI) | payer MEDICARE, SELFPAY | PROVIDERS: PCP Internal Medicine; Referring Provider Psychiatry & Neurology Neurology; Visit Provider Psychiatry & Neurology Neurology | DX: G62.9 Polyneuropathy, unspecified (principal) | CPT/HCPCS: 86335 ==

== ENCOUNTER → 2021-05-09 11:20 | Outpatient (CLI) | payer MEDICARE, SELFPAY ==
[2021-05-09 15:21] LABS: Absolute Lymphocyte Count 1.47 X10^3/uL (0.83-4.51); Absolute Neutrophil Count 4.4 X10^3/uL (2.0-7.7); Basophil# 0.01 X10^3/uL; Basophil% 0.2 % (0-1); Eosinophil# 0.15 X10^3/uL; Eosinophils% 2.3 % (0-5); Hematocrit 44.4 % (40-54); Hemoglobin 14.4 g/dL (13.0-16.5); Lymphocyte # 1.47 X10^3/ul (0.83-4.51); Lymphocyte % 22.6 % (19-41); Mean Corp Hgb Conc 32.4 g/dL (32-36); Mean Corpuscular Volume 89.3 fL (80-94); Mean Platelet Vol. 11.9 fl (6.2-12.0); Monocyte# 0.45 X10^3/uL; Monocyte% 6.9 % (0-10); NRBC Flagged by Analyzer 0 % (0-5); Neutrophil % 67.7 % (47-70); Platelet Count 198 K/mm3 (150-450); RBC Distribution Width CV 13.1 % (11.6-14.6); RBC Distribution Width SD 42.6 fl (35.1-43.9); Red Blood Count 4.97 M/mm3 (4.6-6.2); White Blood Count 6.5 K/mm3 (4.4-11.0)
[2021-05-09 15:36] LABS: Hemoglobin A1c 5.4 % (3.8-5.6)
[2021-05-09 15:41] LABS: ALB/GLOB Ratio 0.9 RATIO (0.9-2.4); AST(SGOT) 19 U/L (15-37); Alanine Aminotransfer ALT/SGPT 21 U/L (16-61); Albumin, Serum 3.8 g/dL (3.2-5.0); Alkaline Phosphatase 98 U/L (45-117); Anion Gap 5 (5-15); BUN 16 mg/dL (7-18); BUN/Creat Ratio 14.4 RATIO (10-20); Calcium,Total 9.6 mg/dL (8.5-10.1); Chloride 107 mmol/L (98-107); Cholesterol 130 mg/dL (200); Creatinine, Serum 1.11 mg/dL (0.70-1.30); EST Glomerular Filtration Rate 70 mL/min (>60); Est Glom Filt Rate - Afr Amer 85 mL/min (>60); Globulin 4.2 g/dL (2.2-4.2); Glucose 103 mg/dL (74-106); High Density Lipoprotein 40 mg/dL; Potassium 4.2 mmol/L (3.5-5.1); Sodium Level 140 mmol/L (136-145); Thyroid Stim Hormone (TSH) 1.17 uIU/mL (0.358-3.74); Triglycerides 128 mg/dL; Very Low Density Lipoprotein 26 mg/dL (5-40)
[2021-05-09 15:43] LABS: Microalbumin,Random Urine 50.2 mg/L (NO RANGE EST.); Microalbumin:Creatinine Ratio 27.7 mg/g CRE (<30 mg/g CRE)
[2021-05-09 16:07] LABS: Hepatitis C Antibody Non-Reactive (Nonreactive)
== END ==
PROVIDERS: PCP Internal Medicine; Referring Provider Internal Medicine; Visit Provider Internal Medicine
DX: I10 Essential (primary) hypertension (principal); E78.00 Pure hypercholesterolemia, unspecified; R80.9 Proteinuria, unspecified; Z11.59 Encounter for screening for other viral diseases; E11.9 Type 2 diabetes mellitus without complications
CPT/HCPCS: 36415; 80053; 80061; 82043; 82570; 83036; 84443; 85025; 86803

== ENCOUNTER 2021-06-07 10:01 | Emergency (ER) | payer MEDICARE, SELFPAY ==
[2021-06-07 10:03] VITALS: BP 131/79; PULSE 66; RESP 16; TEMP 36.1; O2SAT 96; BMI 32.9
[2021-06-07 10:41] LABS: Color, Urine Yellow (Yellow); Glucose, Dipstick Normal (Normal); Ketone-Dipstick Negative (Negative); Leukocyte Esterase-Dipstick 100 /ul (Negative); Nitrite-Dipstick Negative (Negative); Occult Blood-Urine 250 /ul (Negative); Protein-Dipstick Negative (Negative); Specific Gravity, Urine 1.015 (1.002-1.030); Urine Bilirubin Dipstick Negative (Negative); Urine Clarity Clear (Clear); Urine Urobilinogen Normal (Normal)
--- NOTE | 2021-06-07 11:04 | CT_ITS ---
STUDY: CT ABDOMEN AND PELVIS WITHOUT CONTRAST REASON FOR EXAM: Male, 70 years old. Left-sided abdominal pain. RADIATION DOSAGE (If Supplied By Facility): CTDIvol = ( 15.5 ) mGy, DLP = ( 762.95 ) mGycm TECHNIQUE: Transaxial images were obtained from the dome of the diaphragm to the symphysis pubis without oral contrast, and without intravenous contrast. Sagittal and coronal images were reconstructed. Individualized dose optimization techniques were used for this CT. COMPARISON: None. FINDINGS: Mild degree of increased linear markings at the lung bases suggestive of mild scarring and/or atelectasis. The visualized portions of the heart are within normal limits. There is decreased attenuation of the liver consistent with steatosis. Normal gallbladder and extrahepatic biliary system. Normal spleen. 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 Normal pancreas. Normal bilateral adrenal glands. Punctate calculus in the upper pole of the right kidney. Punctate calculus in the upper pole of the left kidney. Mild degree of left hydronephrosis and hydroureter due to a 3.4 mm calculus in the midportion of the left ureter. Normal visualized stomach. Normal small intestine. There are multiple colonic diverticula consistent with diverticulosis. The appendix is visualized and appears normal. There is diffuse atherosclerotic calcification of the abdominal aorta and its major visceral branches, without a demonstrated aneurysm. Normal inferior vena cava. Normal retroperitoneum. A 2 mm calculus is seen at the base of the bladder on the right side. This may represent a recently passed calculus. There is enlargement of the prostate gland. The prostate measures 3.9 cm x 6.5 cm. This causes indentation of the bladder base. Small umbilical hernia containing fat and nondilated small bowel. There are diffuse degenerative changes of the visualized lumbar spine. CT/Abdomen/Pelvis without Cont IMPRESSION: 3.2 mm calculus in the midportion of the left ureter causing left hydronephrosis and hydroureter. 2 mm calculus seen at the base of the bladder on the right side in keeping with a recently passed stone. Fatty infiltration of the liver. Sigmoid diverticulosis. Electronically Signed: Brian Toledo MD at 12:06 EST , Service support ,
[2021-06-07] MEDS: Ketorolac 15 MG/ML Vial IV (11:19)
[2021-06-07] MEDS: Morphine 4 MG/ML Syringe IV (11:19)
[2021-06-07] MEDS: Ondansetron 4 MG/2 ML Vial IV (11:19)
[2021-06-07 11:36] LABS: Absolute Lymphocyte Count 1.41 X10^3/uL (0.83-4.51); Absolute Neutrophil Count 5.7 X10^3/uL (2.0-7.7); Basophil# 0.01 X10^3/uL; Basophil% 0.1 % (0-1); Eosinophil# 0.12 X10^3/uL; Eosinophils% 1.6 % (0-5); Hemoglobin 14.5 g/dL (13.0-16.5); Lymphocyte # 1.41 X10^3/ul (0.83-4.51); Lymphocyte % 18.3 % (19-41); Mean Corp Hgb Conc 32.2 g/dL (32-36); Mean Corpuscular Hgb 28.7 pg (27.0-32.0); Mean Corpuscular Volume 88.9 fL (80-94); Mean Platelet Vol. 11.3 fl (6.2-12.0); Monocyte# 0.49 X10^3/uL; Monocyte% 6.3 % (0-10); NRBC Flagged by Analyzer 0 % (0-5); Neutrophil # 5.65 X10^3/uL (2.7-7.7); Neutrophil % 73.2 % (47-70); Platelet Count 212 K/mm3 (150-450); RBC Distribution Width CV 13.1 % (11.6-14.6); RBC Distribution Width SD 42.5 fl (35.1-43.9); Red Blood Count 5.06 M/mm3 (4.6-6.2); White Blood Count 7.7 K/mm3 (4.4-11.0)
[2021-06-07 11:38] LABS: Anion Gap 6 (5-15); BUN 14 mg/dL (7-18); BUN/Creat Ratio 11.7 RATIO (10-20); Calcium,Total 9.8 mg/dL (8.5-10.1); Chloride 107 mmol/L (98-107); EST Glomerular Filtration Rate 64 mL/min (>60); Est Glom Filt Rate - Afr Amer 77 mL/min (>60); Estimated Creatinine Clearance 58.92 ml/min; Glucose 122 mg/dL (74-106); Potassium 4.4 mmol/L (3.5-5.1); Sodium Level 140 mmol/L (136-145)
[2021-06-07 12:17] VITALS: BP 127/77; PULSE 61; RESP 18; O2SAT 97
--- NOTE | 2021-06-07 14:02 | EX.ED.GUMALE ---
HPI History of Present Illness Chief Complaint: Male Pain/Injury Narrative Narrative: 70-year-old male presenting with left flank pain which radiates into the left inguinal region. He has no history of kidney stones. He thought he was having some back pain recently and thought it was musculoskeletal. He states today he got sweaty and nauseous with this pain. Its been persistent today since he started. Patient denies constipation or diarrhea. He does not have any urinary complaints. [facility] Medical History Arthritis Asthma Back pain Bilateral carpal tunnel syndrome BPH (benign prostatic hyperplasia) Chronic back pain Chronic tension type headache DDD (degenerative disc disease) Essential (primary) hypertension Fatty liver GERD (gastroesophageal reflux disease) Hyperlipidemia Knee pain Limb weakness Neuropathy Obesity Obstructive sleep apnea Parkinson disease Shoulder pain Spinal stenosis Supraventricular tachycardia (06/17/18) Tremor Type 2 diabetes mellitus Home Medications fluticasone propionate 2 spray NASAL DAILY PRN PRN 02/12/14 [History Last Taken 02/07/15] omeprazole 40 mg capsule,delayed release 40 mg PO DAILY cap 05/19/19 [History Last Taken Unknown] loratadine 10 mg tablet 10 mg PO DAILY PRN 06/13/20 [History Last Taken Unknown] aspirin 81 mg tablet,delayed release 81 mg PO QDAY #90 tab 06/17/20 [Rx Last Taken 06/27/20] amlodipine 10 mg tablet 10 mg PO DAILY #90 tab 04/24/21 [Rx Last Taken Unknown] carbidopa 25 mg-levodopa 100 mg tablet 1 tab PO 4X/DAY #360 tab 04/24/21 [Rx Last Taken Unknown] losartan 50 mg tablet 50 mg PO QDAY #90 tab 04/24/21 [Rx Last Taken Unknown] metoprolol succinate 25 mg tablet,extended release 24 hr 25 mg PO DAILY #90 tab 04/24/21 [Rx Last Taken Unknown] rosuvastatin 5 mg tablet 5 mg PO DAILY #90 tab 04/24/21 [Rx Last Taken Unknown] hydrocodone-acetaminophen 1 tab PO Q6H PRN PRN 3 Days #12 tablet 06/07/21 [Rx Last Taken Unknown] ondansetron 4 mg PO Q8H PRN PRN #14 tab 06/07/21 [Rx Last Taken Unknown] tamsulosin [Flomax] 0.4 mg PO DAILY #7 cap 06/07/21 [Rx Last Taken Unknown] Allergy/AdvReac Type Severity Reaction Status Date / Time ciprofloxacin [From Cipro] Allergy Severe Rash Verified 04/24/21 15:01 ciprofloxacin HCl Allergy Severe Rash Verified 04/24/21 15:01 [From Cipro] Family History Mother CAD (coronary artery disease) Father Cancer Uncle Parkinson's disease Other Alcoholism Arthritis Asthma Bleeding disorder CVA (cerebral vascular accident) Heart disease Hyperlipidemia Hypertension Myocardial infarction Surgical History History of carpal tunnel release History of herniorrhaphy History of left heart catheterization (06/27/20) Previous back surgery Social History Smoking Status: Never smoker Electronic Cigarette Use: not used second hand exposure: No alcohol intake: current alcohol intake frequency: a few times a month Alcohol type: beer substance use type: does not use ROS ROS ED Constitutional Constitutional ED: Reports sweats; Denies chills or fever(s) Eyes Eyes: Denies blurry vision or change in vision ENT ENT ED: Denies rhinorrhea or sore throat Cardiovascular Cardiovascular: Denies chest pain or palpitations Respiratory/Chest Respiratory/Chest: Denies cough, dyspnea or sputum Gastrointestinal Gastrointestinal: Reports abdominal pain, nausea and vomiting Genitourinary Genitourinary ED: Denies dysuria or hematuria Musculoskeletal Musculoskeletal: Reports back pain; Denies arthralgias or myalgias Integumentary Denies rash Neurologic Neurologic: Denies headache(s) or paresthesias EXAM Physical Exam Const Vital Signs: 06/07/21 10:03 06/07/21 12:17 Temperature 97 F L Temperature Source Temporal Pulse Rate 66 61 Respiratory Rate 16 18 Blood Pressure 131/79 H 127/77 H Blood Pressure Mean 96 93 Pulse Ox 96 97 Oxygen Delivery Method Room Air Room Air Positive well nourished General Appearance ED: NAD; Negative for pallor HEENT Reports moist mucous membranes normocephalic and atraumatic Eyes PERRL and EOMs intact bilaterally Resp normal respiratory effort and clear to auscultation bilaterally Cardio regular rate and regular rhythm GI non-tender and non-distended Palpation: soft Bladder / Kidney Exam: CVA tenderness left Extremity normal to inspection Neuro oriented x3 Sensorium / Orientation: alert Psych mental status grossly normal Skin General Skin Exam: Negative for jaundice or pallor MDM MDM MDM Narrative Medical decision making narrative: Patient presenting with left flank pain. No history of kidney stones. He is given morphine, Zofran, Toradol. Pain is improved with treatment. Urinalysis shows occult blood in the urine. CBC shows no leukocytosis and his hemoglobin and hematocrit are stable. Platelets are normal. Obtain CT of the abdomen pelvis without contrast which shows a 3.2 mm calculus in the midportion of the left ureter causing hydronephrosis and hydroureter. There is also a 2 mm calculus seen at the base of the bladder which is likely peacefully passed stone. This may correlate to the patient's previous back pain which he thought was musculoskeletal. Patient will be scribed Topping, Zofran, Flomax for home. He is given follow-up with Dr. Rascon. He was given return precautions. Impression: 1. Left 3.2 mm ureteral stone 2. Left hydronephrosis 3. Left hydroureter 4. Hematuria Lab Data Attestation: I reviewed the patient's lab results. Labs: Laboratory Results - last 24 hr 06/07/21 06/07/21 06/07/21 10:13 10:40 10:40 WBC 7.7 RBC 5.06 Hgb 14.5 Hct 45.0 MCV 88.9 MCH 28.7 MCHC 32.2 RDW Std Deviation 42.5 RDW Coeff of Leila 13.1 Plt Count 212 MPV 11.3 Immature Gran % (Auto) 0.500 Neut % (Auto) 73.2 H Lymph % (Auto) 18.3 L Hart % (Auto) 6.3 Eos % (Auto) 1.6 Baso % (Auto) 0.1 Absolute Neuts (auto) 5.7 Absolute Lymphs (auto) 1.41 Nucleated RBC % 0 Sodium 140 Potassium 4.4 Chloride 107 Carbon Dioxide 27.0 Anion Gap 6 BUN 14 Creatinine 1.20 Estim Creat Clear Calc 58.92 Est GFR (MDRD) Af Amer 77 Est GFR (MDRD) Non-Af 64 BUN/Creatinine Ratio 11.7 Glucose 122 H Calcium 9.8 Urine Color Yellow Urine Clarity Clear Urine pH 5.0 Ur Specific [place] 1.015 Urine Protein Negative Urine Glucose (UA) Normal Urine Ketones Negative Urine Occult Blood 250 H Urine Nitrite Negative Urine Bilirubin Negative Urine Urobilinogen Normal Ur Leukocyte Esterase 100 H Radiography Diagnostic Testing: Clinical Impression(s) from Imaging Studies Abdomen/Pelvis CT 06/07/21 11:04 IMPRESSION: 3.2 mm calculus in the midportion of the left ureter causing left hydronephrosis and hydroureter. 2 mm calculus seen at the base of the bladder on the right side in keeping with a recently passed stone. Fatty infiltration of the liver. Sigmoid diverticulosis. Electronically Signed: Brian Toledo MD at 12:06 EST , Service support , Discharge Plan Triage Chief Complaint: Male Pain/Injury ED Provider: Tera Pierre Dx/Rx/DC Orders Instructions: ED Kidney Stone, Passed Prescriptions: New hydrocodone-acetaminophen 5-325 mg tablet 1 tab PO Q6H PRN PRN (Reason: Pain) 3 Days Qty: 12 RF: 0 ondansetron 4 mg tablet,disintegrating 4 mg PO Q8H PRN PRN (Reason: Nausea) Qty: 14 RF: 0 tamsulosin [Flomax] 0.4 mg capsule 0.4 mg PO DAILY Qty: 7 RF: 0 No Action omeprazole 40 mg capsule,delayed release(DR/EC) 40 mg PO DAILY RF: 0 aspirin [Adult Low Dose Aspirin] 81 mg tablet,delayed release (DR/EC) 81 mg PO QDAY Qty: 90 RF: 3 loratadine [Claritin] 10 mg tablet 10 mg PO DAILY PRN (Reason: allergy symptoms) RF: 0 carbidopa-levodopa 25-100 mg tablet 1 tab PO 4X/DAY Qty: 360 RF: 1 fluticasone propionate 1 SPRAY spray,suspension 2 spray NASAL DAILY PRN PRN (Reason: Cough/Congestion) RF: 0 amlodipine 10 mg tablet 10 mg PO DAILY Qty: 90 RF: 3 losartan 50 mg tablet 50 mg PO QDAY Qty: 90 RF: 3 metoprolol succinate [Toprol XL] 25 mg tablet extended release 24 hr 25 mg PO DAILY Qty: 90 RF: 3 rosuvastatin 5 mg tablet 5 mg PO DAILY Qty: 90 RF: 3 Primary Care Provider: Prema Perez Referrals: Bryson Peñaloza MD [STAFF PHYSICIAN] - As soon as possible Prema Perez DO [Primary Care Provider] - Disposition Disposition: Home, Self Care Discharge Date/Time: 06/07/21 13:06
== END 2021-06-07 13:06 | disposition home or self-care (01) ==
PROVIDERS: Emergency Provider Student in an Organized Health Care Education/Training Program; PCP Internal Medicine; Visit Provider Student in an Organized Health Care Education/Training Program
DX: N13.2 Hydronephrosis with renal and ureteral calculous obstruction (principal); G20 Parkinson's disease; E11.40 Type 2 diabetes mellitus with diabetic neuropathy, unspecified; N13.4 Hydroureter; I10 Essential (primary) hypertension; E78.5 Hyperlipidemia, unspecified; K21.9 Gastro-esophageal reflux disease without esophagitis; E66.9 Obesity, unspecified; Z68.32 Body mass index [BMI] 32.0-32.9, adult; Z79.82 Long term (current) use of aspirin; Z79.899 Other long term (current) drug therapy
CPT/HCPCS: 74176; 80048; 81002; 85025; 96374; 96375; 99283; J7050; A4216; J2405

== ENCOUNTER 2021-06-08 12:06 | Emergency (ER) | payer MEDICARE, SELFPAY ==
[2021-06-08 12:07] VITALS: BP 145/86; PULSE 67; RESP 16; TEMP 36; O2SAT 97; BMI 33.1
[2021-06-08] MEDS: HYDROmorphone 0.5 MG/0.5 ML SYRINGE IV ×2 (13:08→14:14)
[2021-06-08] MEDS: Ondansetron 4 MG/2 ML Vial IV (13:08)
[2021-06-08] MEDS: Ketorolac 15 MG/ML Vial IV (13:08)
[2021-06-08] MEDS: oxyCODONE 5 MG Tablet PO (15:30)
[2021-06-08 15:35] VITALS: BP 150/90; PULSE 76; RESP 14; O2SAT 95
--- NOTE | 2021-06-08 15:52 | EX.ED.GUMALE ---
HPI History of Present Illness Chief Complaint: Flank Pain Narrative Narrative: 62-year-old male presenting with flank pain. He presented yesterday with similar pain. He was worked up and found to have a sided 3 mm ureteral stone with hydronephrosis. He did not have a UTI. He was given morphine and Zofran as well as Toradol. His pain improved. He was discharged home with Hyrum. He states that this morning his pain has been worsening even with Hyrum. He denies constipation or diarrhea. He denies fever or chills [facility] Medical History Arthritis Asthma Back pain Bilateral carpal tunnel syndrome BPH (benign prostatic hyperplasia) Chronic back pain Chronic tension type headache DDD (degenerative disc disease) Essential (primary) hypertension Fatty liver GERD (gastroesophageal reflux disease) Hyperlipidemia Knee pain Limb weakness Neuropathy Obesity Obstructive sleep apnea Parkinson disease Shoulder pain Spinal stenosis Supraventricular tachycardia (06/17/18) Tremor Type 2 diabetes mellitus Home Medications fluticasone propionate 2 spray NASAL DAILY PRN PRN 02/12/14 [History Last Taken 02/07/15] omeprazole 40 mg capsule,delayed release 40 mg PO DAILY cap 05/19/19 [History Last Taken Unknown] loratadine 10 mg tablet 10 mg PO DAILY PRN 06/13/20 [History Last Taken Unknown] aspirin 81 mg tablet,delayed release 81 mg PO QDAY #90 tab 06/17/20 [Rx Last Taken 06/27/20] amlodipine 10 mg tablet 10 mg PO DAILY #90 tab 04/24/21 [Rx Last Taken Unknown] carbidopa 25 mg-levodopa 100 mg tablet 1 tab PO 4X/DAY #360 tab 04/24/21 [Rx Last Taken Unknown] losartan 50 mg tablet 50 mg PO QDAY #90 tab 04/24/21 [Rx Last Taken Unknown] metoprolol succinate 25 mg tablet,extended release 24 hr 25 mg PO DAILY #90 tab 04/24/21 [Rx Last Taken Unknown] rosuvastatin 5 mg tablet 5 mg PO DAILY #90 tab 04/24/21 [Rx Last Taken Unknown] hydrocodone-acetaminophen 1 tab PO Q6H PRN PRN 3 Days #12 tablet 06/07/21 [Rx Last Taken Unknown] ondansetron 4 mg PO Q8H PRN PRN #14 tab 06/07/21 [Rx Last Taken Unknown] tamsulosin [Flomax] 0.4 mg PO DAILY #7 cap 06/07/21 [Rx Last Taken Unknown] oxycodone 5 mg PO Q6H PRN 3 Days #12 cap 06/08/21 [Rx Last Taken Unknown] Allergy/AdvReac Type Severity Reaction Status Date / Time ciprofloxacin [From Cipro] Allergy Severe Rash Verified 06/08/21 12:07 ciprofloxacin HCl Allergy Severe Rash Verified 06/08/21 12:07 [From Cipro] Family History Mother CAD (coronary artery disease) Father Cancer Uncle Parkinson's disease Other Alcoholism Arthritis Asthma Bleeding disorder CVA (cerebral vascular accident) Heart disease Hyperlipidemia Hypertension Myocardial infarction Surgical History History of carpal tunnel release History of herniorrhaphy History of left heart catheterization (06/27/20) Previous back surgery Social History Smoking Status: Never smoker Electronic Cigarette Use: not used second hand exposure: No alcohol intake: current alcohol intake frequency: a few times a month Alcohol type: beer substance use type: does not use ROS ROS ED Constitutional Constitutional ED: Denies chills, fever(s) or sweats Eyes Eyes: Denies blurry vision ENT ENT ED: Denies rhinorrhea or sore throat Cardiovascular Cardiovascular: Denies chest pain or palpitations Respiratory/Chest Respiratory/Chest: Denies cough or dyspnea Gastrointestinal Gastrointestinal: Reports abdominal pain and nausea; Denies constipation, diarrhea or vomiting Genitourinary Genitourinary ED: Reports dysuria; Denies hematuria or urinary frequency Musculoskeletal Musculoskeletal: Reports back pain; Denies arthralgias or myalgias Integumentary Denies rash Neurologic Neurologic: Denies headache(s) or paresthesias EXAM Physical Exam Const Vital Signs: 06/08/21 12:07 06/08/21 15:35 Temperature 96.8 F L Temperature Source Temporal Pulse Rate 67 76 Respiratory Rate 16 14 Blood Pressure 145/86 H 150/90 H Blood Pressure Mean 105 Pulse Ox 97 95 Oxygen Delivery Method Room Air General Appearance ED: NAD; Negative for pallor HEENT Reports moist mucous membranes normocephalic and atraumatic Eyes PERRL and EOMs intact bilaterally Resp normal respiratory effort and clear to auscultation bilaterally Cardio regular rate and regular rhythm GI Palpation: tender LLQ Bladder / Kidney Exam: CVA tenderness left Extremity normal to inspection Neuro oriented x3 and CN's II-XII intact bilaterally Sensorium / Orientation: alert Psych mental status grossly normal Skin General Skin Exam: Negative for jaundice or pallor MDM MDM MDM Narrative Medical decision making narrative: Patient presenting with left flank pain. He has known 3 mm ureteral calculi. He had blood work yesterday and his urinalysis was negative. He is not having fever or chills. Patient was given an IV and given IV Dilaudid 0.5 mg and Zofran. On reevaluation he was improved but he states he has waves of pain. I did newspaper delivery counselor him that he would likely still have pain with his kidney stone passing and then I could not make this is 0 but I can make it more tolerable. He was given a second dose of Dilaudid and he feels comfortable now. I again counseled him that he is going to have some pain while he is passing a kidney stone. I will change his Hyrum to oxycodone. If he has too much pain and cannot take the pain at home he can return to the ER and we will admit him for intractable pain. He denies understanding this. Impression: 1. Left flank pain 2. History of 3 mm ureteral calculi. Discharge Plan Triage Chief Complaint: Flank Pain ED Provider: Tera Pierre Dx/Rx/DC Orders Instructions: ED Kidney Stone w/ Colic Prescriptions: New oxycodone 5 mg capsule 5 mg PO Q6H PRN (Reason: pain) 3 Days Qty: 12 RF: 0 No Action omeprazole 40 mg capsule,delayed release(DR/EC) 40 mg PO DAILY RF: 0 aspirin [Adult Low Dose Aspirin] 81 mg tablet,delayed release (DR/EC) 81 mg PO QDAY Qty: 90 RF: 3 loratadine [Claritin] 10 mg tablet 10 mg PO DAILY PRN (Reason: allergy symptoms) RF: 0 carbidopa-levodopa 25-100 mg tablet 1 tab PO 4X/DAY Qty: 360 RF: 1 fluticasone propionate 1 SPRAY spray,suspension 2 spray NASAL DAILY PRN PRN (Reason: Cough/Congestion) RF: 0 hydrocodone-acetaminophen 5-325 mg tablet 1 tab PO Q6H PRN PRN (Reason: Pain) 3 Days Qty: 12 RF: 0 ondansetron 4 mg tablet,disintegrating 4 mg PO Q8H PRN PRN (Reason: Nausea) Qty: 14 RF: 0 tamsulosin [Flomax] 0.4 mg capsule 0.4 mg PO DAILY Qty: 7 RF: 0 amlodipine 10 mg tablet 10 mg PO DAILY Qty: 90 RF: 3 losartan 50 mg tablet 50 mg PO QDAY Qty: 90 RF: 3 metoprolol succinate [Toprol XL] 25 mg tablet extended release 24 hr 25 mg PO DAILY Qty: 90 RF: 3 rosuvastatin 5 mg tablet 5 mg PO DAILY Qty: 90 RF: 3 Primary Care Provider: Prema Preez Referrals: Bryson Peñaloza MD [STAFF PHYSICIAN] - As soon as possible Prema Perez DO [Primary Care Provider] - Disposition Disposition: Home, Self Care Discharge Date/Time: 06/08/21 15:45
== END 2021-06-08 15:45 | disposition home or self-care (01) ==
PROVIDERS: Emergency Provider Student in an Organized Health Care Education/Training Program; PCP Internal Medicine; Visit Provider Student in an Organized Health Care Education/Training Program
DX: N13.2 Hydronephrosis with renal and ureteral calculous obstruction (principal); I10 Essential (primary) hypertension; E78.5 Hyperlipidemia, unspecified; G47.33 Obstructive sleep apnea (adult) (pediatric); N40.0 Benign prostatic hyperplasia without lower urinary tract symptoms; Z79.82 Long term (current) use of aspirin; Z79.899 Other long term (current) drug therapy
CPT/HCPCS: 96374; 96375; 96376; 99284; A4216; J2405

== ENCOUNTER 2021-06-16 13:19 | Day surgery (SDC) | payer MEDICARE, SELFPAY ==
--- NOTE | 2021-06-16 13:40 | RAD_ITS ---
STUDY: XR Abdomen 1 View 06/16/2021 1:40 PM REASON FOR EXAM: Male, 70 years old. ABDOMINAL PAIN PREOP TECHNIQUE: XR Abdomen 1 View COMPARISON: None FINDINGS: There are calcified phleboliths in the pelvis. This makes differentiation with distal ureteral stones difficult. There is a moderate amount of colonic fecal material. There is no demonstrated free abdominal air. The visualized liver, spleen and kidneys are grossly normal in size and morphology. Normal soft tissue structures. There are diffuse degenerative changes of the visualized lumbar spine. RAD/Abdomen Single View IMPRESSION: Constipation. There are calcified phleboliths in the pelvis. This makes differentiation with distal ureteral stones difficult. Electronically Signed: Hieu Stallings MD at 18:34 EST ,
--- NOTE | 2021-06-16 14:04 | CT_ITS ---
STUDY: CT ABDOMEN AND PELVIS WITHOUT CONTRAST REASON FOR EXAM: Male, 70 years old. Left-sided renal calculi. RADIATION DOSAGE (If Supplied By Facility): CTDIvol = ( 19.22 ) mGy, DLP = ( 891.38 ) mGycm TECHNIQUE: Transaxial images were obtained from the dome of the diaphragm to the symphysis pubis without oral contrast, and without intravenous contrast. Sagittal and coronal images were reconstructed. Individualized dose optimization techniques were used for this CT. COMPARISON: Comparison is made with prior study dated 06/07/2021. FINDINGS: The visualized lung bases are unremarkable. Coronary artery calcification. Minimal pericardial thickening. Normal liver. Normal gallbladder and extrahepatic biliary system. Normal spleen. Stable 1.3 cm calcified splenic artery aneurysm in the region of the splenic hilum. Normal pancreas. Normal bilateral adrenal glands. Punctate calculus in the lower pole calyx of the right kidney. The previously seen calculus in the midportion of the left ureter is now seen in the distal portion of the left ureter just proximal to the ureterovesical junction. Normal visualized stomach. Normal small intestine. There are multiple colonic diverticula consistent with diverticulosis. The appendix is visualized and appears normal. There is scattered atherosclerotic calcification of the abdominal aorta, without a demonstrated aneurysm. Normal inferior vena cava. Normal retroperitoneum. Normal urinary bladder. There is enlargement of the prostate gland. Calcifications are seen within it. There is a small umbilical hernia containing fat. There are diffuse degenerative changes of the visualized lumbar spine. CT/Abdomen/Pelvis without Cont IMPRESSION: The previously seen 3.4 mm calculus in the left mid ureter is not in the distal portion the left ureter just proximal to the ureterovesical junction. Electronically Signed: Brian Toledo MD at 14:33 EST ,
[2021-06-16 14:33] VITALS: BP 110/70; PULSE 62; RESP 16; TEMP 36.6; O2SAT 97; BMI 32.8
[2021-06-16] MEDS: Cefazolin 2 GM in 0.9% Normal Saline 100 ML IV (16:00)
[2021-06-16] MEDS: Lactated Ringers 1,000 ML 30 ML IV (16:02)
[2021-06-16 17:03] VITALS: BP 110/70; BP 113/68; PULSE 56; RESP 15; TEMP 36.1; O2SAT 97
--- NOTE | 2021-06-16 17:08 | HP.PCM_ITS ---
HPI - General HPI Narrative LITZY PERAZA, is a 70 M who presents for shockwave lithotripsy on left side [facility] Medical History (Updated 06/14/21 @ 10:04 by Sunshine Rico) Alcohol use Arthritis Asthma Asthma Back pain Back pain Bilateral carpal tunnel syndrome BPH (benign prostatic hyperplasia) Cardiology follow-up encounter Chronic back pain Chronic tension type headache CPAP (continuous positive airway pressure) dependence DDD (degenerative disc disease) Diabetes Essential (primary) hypertension Fatty liver Gastric reflux GERD (gastroesophageal reflux disease) History of atrial fibrillation History of echocardiogram History of edema History of pain when walking History of stress test Hx of vertigo Hyperlipidemia Knee pain Leg cramps Limb weakness Neuropathy Non-smoker Obesity Obstructive sleep apnea Parkinson disease Shortness of breath on exertion Shoulder pain Spinal stenosis Supraventricular tachycardia (06/17/18) Tremor Type 2 diabetes mellitus Wears glasses Home Medications fluticasone propionate 2 spray NASAL DAILY PRN PRN 02/12/14 [History Last Taken 02/07/15] omeprazole 40 mg capsule,delayed release 40 mg PO DAILY cap 05/19/19 [History Last Taken 06/16/21 10:00] loratadine 10 mg tablet 10 mg PO DAILY PRN 06/13/20 [History Last Taken Unknown] amlodipine 10 mg tablet 10 mg PO DAILY #90 tab 04/24/21 [Rx Last Taken 06/16/21 10:00] carbidopa 25 mg-levodopa 100 mg tablet 1 tab PO 4X/DAY #360 tab 04/24/21 [Rx Last Taken 06/16/21 10:00] losartan 50 mg tablet 50 mg PO QDAY #90 tab 04/24/21 [Rx Last Taken 06/16/21 10:00] metoprolol succinate 25 mg tablet,extended release 24 hr 25 mg PO DAILY #90 tab 04/24/21 [Rx Last Taken 06/16/21 10:00] rosuvastatin 5 mg tablet 5 mg PO DAILY #90 tab 04/24/21 [Rx Last Taken Unknown] hydrocodone-acetaminophen 1 tab PO Q6H PRN PRN 3 Days #12 tablet 06/07/21 [Rx [place] st Taken Unknown] ondansetron 4 mg PO Q8H PRN PRN #14 tab 06/07/21 [Rx Last Taken Unknown] oxycodone 5 mg PO Q6H PRN 3 Days #12 cap 06/08/21 [Rx Last Taken Unknown] cephalexin 500 mg PO BID #6 cap 06/16/21 [Rx Last Taken Unknown] Allergy/AdvReac Type Severity Reaction Status Date / Time ciprofloxacin [From Cipro] Allergy Severe Rash Verified 06/16/21 14:30 ciprofloxacin HCl Allergy Severe Rash Verified 06/16/21 14:30 [From Cipro] Family History Mother CAD (coronary artery disease) Father Cancer Uncle Parkinson's disease Other Alcoholism Arthritis Asthma Bleeding disorder CVA (cerebral vascular accident) Heart disease Hyperlipidemia Hypertension Myocardial infarction Surgical History (Updated 06/14/21 @ 10:04 by Sunshine Rico) History of carpal tunnel surgery of left wrist History of carpal tunnel surgery of right wrist History of esophagogastroduodenoscopy (EGD) History of herniorrhaphy History of left heart catheterization (06/27/20) Hx of colonoscopy Hx of discectomy Hx of right knee surgery Social History Smoking Status: Never smoker Electronic Cigarette Use: not used second hand exposure: No alcohol intake: current alcohol intake frequency: a few times a month Alcohol type: beer substance use type: does not use Vital Signs Vital Signs Vital Signs: 06/16/21 14:33 06/16/21 17:03 Temperature 98 F 97 F L Temperature Source Temporal Temporal Pulse Rate 62 56 L Respiratory Rate 16 15 Respiratory Pattern Normal Normal Blood Pressure 110/70 113/68 Blood Pressure Mean 83 83 Blood Pressure Source Monitor Monitor Blood Pressure Position Semi-Fowlers Supine Blood Pressure Location Left Arm Left Arm Baseline BP 110/70 Pulse Ox 97 97 Oxygen Delivery Method Room Air Room Air Weight Weight: 100.9 kg Body Mass Index (BMI) 32.8 Results Radiology Impression Abdomen/Pelvis CT 06/16/21 14:04 IMPRESSION: The previously seen 3.4 mm calculus in the left mid ureter is not in the distal portion the left ureter just proximal to the ureterovesical junction. Electronically Signed: Brian Toledo MD at 14:33 EST ,
--- NOTE | 2021-06-16 17:08 | PCM.DC ---
Discharge Instructions Diet Discharge Diet: No restrictions Activity Discharge Activity: Return to Normal Activity and May Not Drive (while taking narcotic pain medications.) Dressing / Incision Call your doctor if you observe: Fever of 101 or Higher Follow Up Care Please Follow Up With: Bryson Peñaloza MD When: Call [phone] for an appointment Test Results: Test results from this visit will be discussed in further detail at your follow-up appointment, if applicable. Discharge Plan Admission Primary Reason for Your Visit: kidney stone Attending Provider: Bryson Peñaloza Primary Care Provider: Prema Perez Instructions Patient Instructions: Shock Wave Lithotripsy Discharge Orders/Prescriptions Prescriptions: New cephalexin 500 mg capsule 500 mg PO BID Qty: 6 RF: 0 Continued omeprazole 40 mg capsule,delayed release(DR/EC) 40 mg PO DAILY RF: 0 loratadine [Claritin] 10 mg tablet 10 mg PO DAILY PRN (Reason: allergy symptoms) RF: 0 carbidopa-levodopa 25-100 mg tablet 1 tab PO 4X/DAY Qty: 360 RF: 1 fluticasone propionate 1 SPRAY spray,suspension 2 spray NASAL DAILY PRN PRN (Reason: Cough/Congestion) RF: 0 hydrocodone-acetaminophen 5-325 mg tablet 1 tab PO Q6H PRN PRN (Reason: Pain) 3 Days Qty: 12 RF: 0 ondansetron 4 mg tablet,disintegrating 4 mg PO Q8H PRN PRN (Reason: Nausea) Qty: 14 RF: 0 oxycodone 5 mg capsule 5 mg PO Q6H PRN (Reason: pain) 3 Days Qty: 12 RF: 0 amlodipine 10 mg tablet 10 mg PO DAILY Qty: 90 RF: 3 losartan 50 mg tablet 50 mg PO QDAY Qty: 90 RF: 3 metoprolol succinate [Toprol XL] 25 mg tablet extended release 24 hr 25 mg PO DAILY Qty: 90 RF: 3 rosuvastatin 5 mg tablet 5 mg PO DAILY Qty: 90 RF: 3 Referrals / Follow Up: Bryson Peñaloza MD [STAFF PHYSICIAN] - Prema Perez DO [Primary Care Provider] - Disposition Disposition (needs filled in before D/C Order can be placed): Home, Self Care
--- NOTE | 2021-06-16 17:09 | OP.PCM_ITS ---
Report of Operation Date of Procedure: 06/16/21 Pre-Operative Diagnosis: Left ureteral calculi Post-Operative Diagnosis: Same Surgery/Procedure Performed:: Left ESWL Description of Surgical Findings:: Patient presents to the hospital for treatment of a kidney stone with shockwave lithotripsy. In the preoperative area and x-ray was done to confirm the location of the stone. The x-ray was reviewed and the stone location was reviewed. In the preoperative setting I spoke with the patient regarding the treatment of the stone how the treatment would be conducted and the expectations after surgery. The patient understands there is a risk of bleeding and infection. Also discussed the very rare risk of hematoma or damage to the kidney. We also discussed the risk that the shockwave machine will fail to break the stone adequately and that the patient may need other surgical procedures. We also discussed the possibility that the patient may need a stent after the procedure. After reviewing the procedure with the patient, the patient is signed the consent form all the patient's questions were addressed and was taken back to the operating room for treatment of a kidney stone. Patient was taken back to the operating room, patient was identified by the nursing staff, we identified the side of the treatment and the patient side of treatment had been marked by my initials. The patient underwent general anesthetic and was placed supine on the lithotripter table. We then used fluoroscopy to identify the stone on the left side in the distal ureter. We then positioned the patient under the lithotripter and we used triangulation technique to identify the location of the stone and then we made sure that the stone was engaged in the F2 focal point of F2 Donier lithoprior machine. Once the patient was positioned appropriately and the stone was identified and placed in the F2 focal point of the lithotripter machine we then proceeded with shockwave lithotripsy. In the beginning the shockwave was delivered at a rate o f 90 shocks per minute, we monitor the EKG for any ectopy. The power was slowly increased to 5 kV and subsequently at the 7 kV. We then proceeded with the treatment we move the therapy had around during the treatment to make sure the stone stayed in the F2 focal point during the entire treatment and after 3000 shockwaves were delivered to the stone under fluoroscopic guidance the treatment was completed. The stone appeared to break up completely. The patient was given instructions to call the office to make an a follow-up appointment with an xray to evaluate the success of the treatment, pateint understands that its possible the stones may need another procedure.At this point the patient's anesthetic was reversed patient was extubated and taken back to the PACU in stable condition. Surgeon: meghan Type of Anesthesia: General Drains: none Admit VTE Documentation VTE Present on Admission: No VTE Mechan Device Prophylaxis: SCD's VTE Pharm Prophylaxis ordered?: No
[2021-06-16 17:15] VITALS: BP 110/70; BP 118/70; PULSE 62; RESP 16; O2SAT 96
[2021-06-16 17:31] VITALS: BP 110/70; BP 126/75; PULSE 62; RESP 16; TEMP 36.9; O2SAT 97
[2021-06-16 18:05] VITALS: BP 110/70
== END 2021-06-16 23:59 | disposition home or self-care (01) ==
LOC: SDC 13:25 → AC 13:27
PROVIDERS: PCP Internal Medicine; Referring Provider Urology; Visit Provider Urology
PROC: (CPT 50590; principal; 2021-06-16 15:20)
DX: N20.1 Calculus of ureter (principal); G21.8 Other secondary parkinsonism; I47.1 Supraventricular tachycardia; I10 Essential (primary) hypertension; E78.5 Hyperlipidemia, unspecified; M19.90 Unspecified osteoarthritis, unspecified site; K21.9 Gastro-esophageal reflux disease without esophagitis; E66.9 Obesity, unspecified; G47.33 Obstructive sleep apnea (adult) (pediatric); G62.9 Polyneuropathy, unspecified; J45.20 Mild intermittent asthma, uncomplicated; R73.03 Prediabetes; Z68.32 Body mass index [BMI] 32.0-32.9, adult; Z91.19 Patient's noncompliance with other medical treatment and regimen; Z79.899 Other long term (current) drug therapy; Z20.822 Contact with and (suspected) exposure to COVID-19
CPT/HCPCS: 50590; 00873; 74018; 74176; 87426; C9803; J7120; C1769; J2405

== ENCOUNTER → 2021-10-12 | Outpatient (CLI) | payer MEDICARE, SELFPAY | END | disposition home or self-care (01) | LOC: LABSPEC 16:37 | PROVIDERS: PCP Internal Medicine; Referring Provider Urology; Visit Provider Urology | DX: R31.0 Gross hematuria (principal) | CPT/HCPCS: 87086; 87088; 87186 ==

== ENCOUNTER → 2022-03-19 | Outpatient (CLI) | payer MEDICARE, SELFPAY ==
--- NOTE | 2022-03-19 16:33 | RAD_ITS ---
INDICATION: Lateral pain for 3 to 4 months. No known injury. EXAMINATION/TECHNIQUE: X-RAY - RIGHT XR Foot Min 3 Views 3 VIEWS COMPARISON: None. FINDINGS: SOFT TISSUES: No soft tissue swelling or gas. No radiopaque foreign body. BONES/JOINTS: Plantar spur. Normal talus and tarsal bones. Mild arthrosis of the articulations of the hindfoot. Normal metatarsals. There is marked arthrosis of the first metatarsophalangeal joint. Remainder of the metatarsophalangeal joints are unremarkable. Normal phalanges and interphalangeal joints. 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 Electronically Signed: Alan Scanlon DO at 23:16 EDT ,
== END | disposition home or self-care (01) ==
LOC: MTRAD 16:22
PROVIDERS: PCP Internal Medicine; Referring Provider Psychiatry & Neurology Neurology; Visit Provider Psychiatry & Neurology Neurology
DX: M79.671 Pain in right foot (principal)
CPT/HCPCS: 73630

== ENCOUNTER → 2022-04-02 | Outpatient (CLI) | payer MEDICARE, SELFPAY | END | disposition home or self-care (01) | PROVIDERS: PCP Internal Medicine; Visit Provider Urology | DX: R97.20 Elevated prostate specific antigen [PSA] (principal) | CPT/HCPCS: 36415; 84153 ==

== ENCOUNTER 2022-11-23 13:00 | Outpatient (RCR) | payer MEDICARE, SELFPAY ==
--- NOTE | 2022-10-24 11:41 | HP.PTEVAL_ITS ---
Patient's Visit Information LITZY PERAZA is a 71 year old M referred to Physical Therapy by Dr. Joaquin Gallegos MD with a diagnosis of PD, weakness. Date of Evaluation: 10/24/22 Physical Therapist: Yariel Vaughn, DPT, OCS, CSCS - Visit Plan Frequency: 2x /Week Duration: 4-6 Weeks Plan: 2x/week for 4 weeks for. 1. ensure LB ROM and NS at home, teach HS stretch for HEP. 2. core adn LE adn postural strength in gym progressing to I. Postural focus. - Subjective Saw Dr. Gallegos for Parkinsons and mentioned he gets sore behind the knees in upper legs B. They feel tired adn sore to 8/10 at times. Aggravated with walking up hill and walking long distances. Walking into latter day usually gets him. Better in the last week. [employer] class helps. Not sure why better this week. Last leg pain was 2 weeks ago. Now just fatigues easy, cannot stand for an hour. Ex is in the class and does some at home for stretching and stepping. not employed. Sleeping OK. Activities are normal outside of yard work, he would like to do more. 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 back hurts if he alison ds too much or stands too long. Wants gym ex and willing to come in and do them. - Objective Walks with a kyphotic thoracic hunch to his stance and gait but I with good aron nce. Able to transfer without UE. steps reciprocal up without rail, descends using rail reciprocally with just some common R knee soreness. UE AROM is full needing VC to use all of it. LE AROM is WFL but tight in psoas limiting hip ext and HS with a -35 90/90 test. Holds LB very stiff when sitting and walking with flat affect. LB AROM ext mod limited, flexion min limited, SB min limited. co re strength 3+. LE strength 4-/5 in knees and ankles and 3+ hip abd and ext and 4- flexion. No obvious Asymmetical weakness. sensation to gross light touch in LE is WNL. reflexes 0/3 patella and achilles B. coordination to reciprocal toe and heel tap is minor deficits. UE reciprocal tapping mod deficits. - Balance/Special Test Scores Functional Gait Assessment Score: 29 % Disability: 3.3400 Lower Extremity Functional Score: 32 - Goals Goal 1:: Pt I in appropriate gym strength and home ROM and stretch of HS to minimize future pain Goal Time Frame: 4-6 Weeks Goal 2:: Pain in B HS and LB 1/10 at worst and manageable at 75% better Goal Time Frame: 4-6 Weeks Goal 3:: 52 LEFS Goal Time Frame: 4-6 Weeks Goal 4:: Run Bingo night without increased pain Goal Time Frame: 4-6 Weeks - Rehabilitation Potential Physical Therapy Diagnosis: Weakness and dsicomfort exacerbated by PD. Rehabilitation Potential: Fair - Anticipated Interventions Patient/Client Instruction: Educate patient on: Condition, Plan of Care For the Purpose of:: To decrease pain, To improve muscle performance and motor function, To increase tolerance to activity/condition/position, To improve ability of physical actions for home/community/work/leisure Therapeutic Exercise to Include: Strength training, Postural training, Flexibilty training, Passive ROM, Active ROM For the Purpose of:: To decrease pain, To increase ROM, To improve nutrient delivery to tissue, To improve muscle performance and motor function, To improve ability to perform ADL's, To improve ability of physical actions for home/community/work/leisure Thank you for the opportunity to evaluate your patient. For Medicare and Medicare HMO plans, please review the plan of care and approve it. It will need to be FAXED BACK to us at [phone] for Medicare purposes. For Medicare only, by signing this I certify the plan of care. Please let me know if there are questions or concerns regarding this plan of care. Physician Signature: Date:
--- NOTE | 2022-11-23 13:43 | HP.PTDCSUM ---
Discharge Summary D/C summary: It has been my pleasure to treat LITZY PERAZA referred by Dr. Joaquin Gallegos MD, with the diagnosis of PD, weakness for a total of 6 visit(s). Discharge Date: 11/23/22 Please see the following information for a summary of their discharge status. Subjective Subjective: Feeling better. I feel better when i do the exercises. LB still hurts up to 6/10 with standing at kitchen sink. Hamstring feeling good right now. Feels normal. HEP: stretches. Thinks he can continue on his own. Back has bothered him since High school. Activities at home are close to normal, Able to lead BINGO but it is stressful. Pain Right LBP: Pain Intensity (Out of 10): 0 Overall Improvement % Improvement: 40 Objective Objective/Function: Fair LB AROM, stiff in extension and painful with L sb today. Walks wella dn turns well today Goals Goal 1:: Pt I in appropriate gym strength and home ROM and stretch of HS to minimize future pain Goal Progress: Goal Met Goal 2:: Pain in B HS and LB 1/10 at worst and manageable at 75% better Goal Progress: Progressing Goal 3:: 52 LEFS Goal Progress: Progressing Goal 4:: Run Bingo night without increased pain Goal Progress: stiff, not pain. Plan Plan: d/c to gym 3x/week adn home stretches daily. D/C Information d/c sentence: If there are questions or concerns regarding this patient's physical therapy, please feel free to call me at [phone]. Thank you for the referral of this patient. Sincerely, Yariel Vaughn, DPT, OCS, CSCS Balance/Gait/Functional tests Balance/Special Test Scores Functional Gait Assessment Score: 29 % Disability: 3.3400 Lower Extremity Functional Score: 40
== END 2022-11-23 19:00 | disposition home or self-care (01) ==
LOC: PT 13:00
PROVIDERS: PCP Internal Medicine; Referring Provider Psychiatry & Neurology Neurology; Visit Provider Psychiatry & Neurology Neurology
DX: R29.898 Other symptoms and signs involving the musculoskeletal system (principal); G20 Parkinson's disease
CPT/HCPCS: 97110; 97162; 97164

== ENCOUNTER → 2023-02-18 | Outpatient (CLI) | payer MEDICARE, SELFPAY ==
--- NOTE | 2023-02-18 15:15 | RAD_ITS ---
STUDY: X-RAY - ABDOMEN/PELVIS REASON FOR EXAM: Male, 72 years old. Renal calculus. TECHNIQUE: Single AP view of the abdomen / pelvis on 2 images. COMPARISON: CT of the abdomen and pelvis showing multiple small renal calcifications. FINDINGS: Normal visualized lung bases. Bowel gas and feces obscure much of the renal shadows. Small calcifications cannot be visualized. The visualized liver, spleen and kidneys are grossly normal in size and morphology. Splenic artery calcification unchanged. Normal visualized osseous structures. RAD/Abdomen Single View IMPRESSION: No acute abnormality. Small renal calcifications nonvisualized because of overlying bowel gas and feces. Electronically Signed: Ramiro Daniel MD at 15:45 EDT ,
== END | disposition home or self-care (01) ==
PROVIDERS: PCP Internal Medicine; Referring Provider Urology; Visit Provider Urology
DX: N20.0 Calculus of kidney (principal)
CPT/HCPCS: 74018

== ENCOUNTER → 2023-04-02 | Outpatient (CLI) | payer MEDICARE, SELFPAY ==
--- NOTE | 2023-04-02 13:30 | LES_PTH ---
PATIENT: LITZY PERAZA LOC: [facility] U#:[id number] AGE/SX: 72/M ROOM: RE04/02/[address]: Dr. Ysabel Vieyra MD : 1950 BED: DIS: 04/02/2023 SPEC #: [id number] RECD: 04/02/23 15:40 STATUS: RADU REQ #: [id number] JA: 04/02/23 13:[address]: Ysabel Vieyra DEPT: SURGICAL PATHOLOGY RECD BY: Danya Chinchilla ENTERED: 04/03/23 10:07 SP TYPE: Lesion OTHR DR: Dr. Prema Perez, DO Tissues: Skin of back, NOS Procedures: Surgery Specimen Level IV HEADER OPERATION: Excision of mid back skin lesion PRE-OP DIAGNOSIS: Mid back skin lesion TISSUE SUBMITTED: Mid back skin lesion MICROSCOPIC DIAGNOSIS Skin lesion of mid back, excision: Seborrheic keratosis, hyperkeratotic type, mildly inflamed. Focally acute folliculitis. See comment. AM:emilio 04/04/2023 COMMENT The lesion appears to have been completely excised in the planes examined. MICROSCOPIC DESCRIPTION Slides are reviewed. GROSS DESCRIPTION Received in fixative is one container labeled with the patient's name and designated mid back lesion. The specimen consists of an ellipse of light mcconnell excised skin measuring 2.6 x 1.0 x 0.4 cm. The specimen is inked, serially sectioned and totally submitted in one cassette. / AM:emilio 04/03/2023 TC:2 CPT: 89136
== END | disposition home or self-care (01) ==
LOC: LABSPEC 15:58
PROVIDERS: PCP Internal Medicine; Visit Provider Surgery
DX: L98.9 Disorder of the skin and subcutaneous tissue, unspecified (principal)
CPT/HCPCS: 88305

== ENCOUNTER → 2023-06-12 | Outpatient (CLI) | payer MEDICARE, SELFPAY ==
[2023-06-12 13:05] LABS: Bacteria 0 SEEN /hpf (None Seen); Mucous, Urine 0 SEEN /hpf (<or=2+); Red Blood Cells-Urine 0 SEEN /hpf (0-5); Squamous Epithelial Cells - UA 0 SEEN /hpf (0-5); White Blood Cells 0 SEEN /hpf (0-5)
[2023-06-12 15:31] LABS: Color, Urine Yellow (Yellow); Glucose, Dipstick 1000 mg/dl (Normal); Ketone-Dipstick Negative (Negative); Leukocyte Esterase-Dipstick Negative /ul (Negative); Nitrite-Dipstick Negative (Negative); Occult Blood-Urine Negative /ul (Negative); Protein-Dipstick Negative (Negative); Specific Gravity, Urine 1.015 (1.002-1.030); Urine Bilirubin Dipstick Negative (Negative); Urine Clarity Clear (Clear); Urine Urobilinogen Normal (Normal)
[2023-06-12 15:34] LABS: Absolute Lymphocyte Count 1.24 X10^3/uL (0.83-4.51); Absolute Neutrophil Count 5.4 X10^3/uL (2.0-7.7); Basophil# 0.01 X10^3/uL; Basophil% 0.1 % (0-1); Eosinophil# 0.07 X10^3/uL; Hematocrit 49.9 % (40-54); Hemoglobin 16.2 g/dL (13.0-16.5); Lymphocyte # 1.24 X10^3/ul (0.83-4.51); Lymphocyte % 17.1 % (19-41); Mean Corp Hgb Conc 32.5 g/dL (32-36); Mean Corpuscular Hgb 28.8 pg (27.0-32.0); Mean Corpuscular Volume 88.8 fL (80-94); Mean Platelet Vol. 11.4 fl (6.2-12.0); Monocyte% 6.9 % (0-10); NRBC Flagged by Analyzer 0 % (0-5); Neutrophil # 5.41 X10^3/uL (2.7-7.7); Neutrophil % 74.5 % (47-70); Platelet Count 222 K/mm3 (150-450); RBC Distribution Width CV 13.3 % (11.6-14.6); RBC Distribution Width SD 43.4 fl (35.1-43.9); Red Blood Count 5.62 M/mm3 (4.6-6.2); White Blood Count 7.3 K/mm3 (4.4-11.0)
[2023-06-12 15:53] LABS: Microalbumin,Random Urine 25.5 mg/L (NO RANGE EST.); Microalbumin:Creatinine Ratio 22.2 mg/g CRE (<30 mg/g CRE)
[2023-06-12 16:25] LABS: AST(SGOT) 24 U/L (15-37); Alanine Aminotransfer ALT/SGPT 19 U/L (16-61); Albumin, Serum 4.1 g/dL (3.2-5.0); Alkaline Phosphatase 110 U/L (45-117); Anion Gap 6 (5-15); BUN 16 mg/dL (7-18); BUN/Creat Ratio 13.9 RATIO (10-20); Calcium,Total 9.9 mg/dL (8.5-10.1); Chloride 105 mmol/L (98-107); Cholesterol 142 mg/dL (200); Creatinine, Serum 1.15 mg/dL (0.70-1.30); EST Glomerular Filtration Rate 67 mL/min (>60); Est Glom Filt Rate - Afr Amer 81 mL/min (>60); Globulin 4.2 g/dL (2.2-4.2); Glucose 110 mg/dL (74-106); High Density Lipoprotein 49 mg/dL; Potassium 4.2 mmol/L (3.5-5.1); Protein, Total 8.3 g/dL (6.4-8.2); Sodium Level 138 mmol/L (136-145); Triglycerides 113 mg/dL; Very Low Density Lipoprotein 23 mg/dL (5-40)
[2023-06-13 14:55] LABS: Thyroid Stim Hormone (TSH) 1.83 uIU/mL (0.358-3.74)
== END | disposition home or self-care (01) ==
PROVIDERS: PCP Internal Medicine; Referring Provider Internal Medicine; Visit Provider Internal Medicine
DX: E11.9 Type 2 diabetes mellitus without complications (principal)
CPT/HCPCS: 36415; 80053; 80061; 81001; 82043; 82570; 84443; 85025

== ENCOUNTER → 2023-08-21 | Outpatient (CLI) | payer MEDICARE, SELFPAY ==
--- NOTE | 2023-08-21 12:00 | RAD_ITS ---
INDICATION: dorsalgia EXAMINATION/TECHNIQUE: X-RAY - XR Spine Cervical 4 or 5 Views COMPARISON: No relevant prior comparison study available FINDINGS: VERTEBRAE: Preserved vertebral body height. C6 and C7 vertebrae are not not well-seen on the lateral view. Mild anterolisthesis of C5 over C6. Straightening of cervical spine. No significant facet arthropathy. DISCS: Narrowing of C4-C5 and C5-C6 disc spaces. Endplate spondylosis. NECK SOFT TISSUES: No prevertebral soft tissue widening. LUNG APICES: Clear. RAD/Cerv Spine 2 or 3 Views IMPRESSION: Degenerative changes of the cervical spine as described above.. Electronically Signed: William Petit MD at 8:40 EDT ,
--- NOTE | 2023-08-21 12:00 | RAD_ITS ---
INDICATION: dorsalgia EXAMINATION/TECHNIQUE: X-RAY - XR Spine Thoracic 3 Views COMPARISON: No relevant prior comparison study available FINDINGS: VERTEBRAE: Preserved vertebral body height. No fracture. No spondylolisthesis. Mild increased kyphosis of the thoracic spine. Mild dextroscoliosis of the lower thoracic and upper lumbar spine. DISCS: Multilevel disc space narrowing. Endplate spondylosis at multiple levels. INCLUDED CHEST/ABDOMEN: No acute abnormalities. RAD/Thoracic Spine 3 Views IMPRESSION: Degenerative changes of the thoracic spine. Electronically Signed: William Petit MD at 9:00 EDT ,
--- NOTE | 2023-08-21 13:11 | NEURO ---
NCS and/or EMG Patient Report Ordering Doctor: Joaquin Gallegos DATE OF SERVICE: 08/21/23 Hesham presents for electrodiagnostic testing of the lower limbs. He reports pain in both legs, worse on the left side. He reports significant numbness in the left leg. Electrodiagnostic findings: Left peroneal motor nerve demonstrates prolonged distal latency with reduced amplitude and normal conduction velocity. There is no significant drop in conduction across the fibular head. Right peroneal motor nerve demonstrates normal distal latency, amplitude and conduction velocity. Tibial motor response demonstrates a borderline prolonged distal latency on the left side. Normal left tibial motor amplitude and conduction velocity. Right tibial motor nerve demonstrates normal distal latency, amplitude and conduction velocity. Normal peroneal and tibial F?waves. Prolonged left tibial H reflex. Sensory responses are within normal limits. Needle EMG testing was performed the lower limbs. There was a decreased recruitment pattern in the left tibialis anterior. No acute denervation was noted. Motor unit action potentials were of normal amplitude and duration. Electrodiagnostic Impression: This is an abnormal study. 1. 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 Decreased left peroneal motor amplitude is noted. 2. There is no electrodiagnostic evidence for peripheral polyneuropathy. 3. No electrodiagnostic evidence for lumbar radiculopathy. Multi Select Codes Neurology Neurology Interp Codes: 38097-45 Musc test done w/n test comp (interp) (2) and 76948-53 Nrv cndj test 11-12 studies (interp)
[2023-08-21 13:33] LABS: Vitamin B12 350 pg/mL (211-911)
[2023-08-21 13:47] LABS: Thyroid Stim Hormone (TSH) 1.31 uIU/mL (0.358-3.74)
[2023-08-27 16:09] LABS: Albumin 3.9 g/dL (2.9-4.4); Alpha-1-Globulins 0.2 g/dL (0.0-0.4); Alpha-2-Globulins 0.9 g/dL (0.4-1.0); Gamma Globulin 1.3 g/dL (0.4-1.8); Immunoglobulin A 384 mg/dL (61-437); Immunoglobulin G 1049 mg/dL (603-1613); Immunoglobulin M 363 mg/dL (20-172); PROEL- TOTAL PROTEIN 7.5 g/dL (6.0-8.5); Vitamin B1, Thiamine 142.8 nmol/L (66.5-200.0)
== END | disposition home or self-care (01) ==
PROVIDERS: PCP Internal Medicine; Referring Provider Psychiatry & Neurology Neurology; Visit Provider Psychiatry & Neurology Neurology
DX: R20.2 Paresthesia of skin (principal); G62.9 Polyneuropathy, unspecified; M54.50 Low back pain, unspecified; M54.2 Cervicalgia; M54.9 Dorsalgia, unspecified; I10 Essential (primary) hypertension
CPT/HCPCS: 36415; 72040; 72072; 82607; 82746; 82784; 84165; 84425; 84443; 86334; 86335; 95886; 95912

== ENCOUNTER → 2023-10-22 | Outpatient (CLI) | payer MEDICARE, SELFPAY ==
--- NOTE | 2023-10-22 06:59 | US_ITS ---
STUDY: ABDOMINAL ULTRASOUND - RIGHT UPPER QUADRANT; ELASTOGRAPHY REASON FOR VISIT: Male, 72 years old. Fatty infiltration of the liver. TECHNIQUE: Ultrasound evaluation of the right upper quadrant was performed with real-time and static antonio-scale imaging. Point quantification shear wave elastography was performed ([employer]). TECHNICAL QUALITY: Adequate. COMPARISON: None. FINDINGS: Liver: The liver is enlarged and measures 19.3 cm. There is increased echogenicity consistent with fatty infiltration. The bile ducts are within normal limits. There is hepatic color flow. The direction of portal flow is hepatopetal. There is no demonstrated mass lesion. Median liver stiffness measured 6.8 kPa. Gallbladder: Normal distended gallbladder. The gallbladder wall measures 2 mm. There is a negative sonographic Puckett''s sign. There is no pericholecystic fluid. There are no gallstones. Common Bile Duct (C.B.D.): The common bile duct measures 5 mm. Pancreas: The pancreas is not visualized due to overlying bowel gas. Right Kidney: Normal size of the right kidney. The right kidney measures 11.2 cm x 6 cm x 5.6 cm. Normal renal cortex. The right cortex measures 1.6 cm. There is no demonstrated renal mass or cyst. There is no right hydronephrosis. US/Abdomen Limited IMPRESSION: 1. Liver stiffness measures 6.8 kPa compatible with F2-F3 (Mild to moderate liver fibrosis) Metavir score. 2. Hepatomegaly and fatty infiltration of the liver. Electronically Signed: Brian Toledo MD at 13:43 EDT ,
== END | disposition home or self-care (01) ==
LOC: US 06:57
PROVIDERS: PCP Internal Medicine; Referring Provider Internal Medicine; Visit Provider Internal Medicine
DX: K76.0 Fatty (change of) liver, not elsewhere classified (principal)
CPT/HCPCS: 76705; 76981

== ENCOUNTER 2024-03-11 19:34 | Emergency (ER) | payer MEDICARE, SELFPAY ==
[2024-03-11] VITALS (7 sets, daily range): BP systolic 110–145; BP diastolic 68–106; PULSE 65–76; RESP 12–16; TEMP 36.2–36.5; O2SAT 94–99; BMI 31.6
--- NOTE | 2024-03-11 19:47 | ED.VIS.CHEST ---
HPI History of Present Illness Chief Complaint: Chest Pain Informant: patient Onset/Context/Timing Onset: Hours (1) Activity at onset: gradual Timing: Continuous Quality: Positive for Tightness Location: Left Parasternal Worsened By: Nothing Relieved By: - (Deep breathing) Associated Symptoms: Positive for Dyspnea; Negative for Nausea, Vomiting, Diaphoresis, Cough, Fever, Lightheadedness, Acid Reflux or Palpitations Narrative Narrative: Patient presents with shortness of breath that began approximate 1 hour prior to arrival. Patient states that he also has been having some pain over the left parasternal area. Patient describes it as a tightness. Patient states that his breathing is better when he is able to take deep breaths. Patient denies any nausea or vomiting. Patient denies any diaphoresis. Patient denies any palpitations. Patient states that he does get lightheaded at times due to his Parkinson's. CVD Risk Factors: Positive for Hypertension; Negative for Diabetes, Hypercholesterolemia, Family History 1' </=55 or Smoking PE Risk Factors: Negative for Recent Travel/Surgery, Recent Immobilization, Prior DVT or PE, Cancer or OCP + Smoking + >/=35 PFSH PFSH Medical History Sebaceous cyst Wears glasses Alcohol use Diabetes Back pain Hx of vertigo Gastric reflux Non-smoker CPAP (continuous positive airway pressure) dependence Asthma Shortness of breath on exertion Leg cramps History of pain when walking History of edema History of echocardiogram History of stress test Cardiology follow-up encounter History of atrial fibrillation Tremor Parkinson disease Neuropathy Bilateral carpal tunnel syndrome Obstructive sleep apnea Fatty liver Spinal stenosis DDD (degenerative disc disease) Type 2 diabetes mellitus Chronic tension type headache Supraventricular tachycardia (06/17/18) GERD (gastroesophageal reflux disease) BPH (benign prostatic hyperplasia) Obesity Chronic back pain Essential (primary) hypertension Back pain Limb weakness Asthma Knee pain Shoulder pain Arthritis Hyperlipidemia Home Medications ?Medication ?Instructions ?Recorded ?Last Taken ?Type fluticasone propionate 50 2 spray NASAL DAILY PRN PRN 02/12/14 02/07/15 History mcg/actuation nasal Cough/Congestion spray,suspension omeprazole 40 mg capsule,delayed 40 mg PO DAILY 05/19/19 06/16/21 10:00 History release loratadine 10 mg tablet (Claritin) 10 mg PO DAILY PRN allergy symptoms 06/13/20 Unknown History losartan 50 mg tablet 50 mg PO QDAY #90 tabs 04/24/21 06/16/21 10:00 Rx amlodipine 10 mg tablet 10 mg PO DAILY #90 tabs 06/07/23 Unknown Rx metoprolol succinate 25 mg 25 mg PO DAILY #90 tabs 06/07/23 Unknown Rx tablet,extended release 24 hr (Toprol XL) rosuvastatin 5 mg tablet 5 mg PO DAILY #90 tabs 10/01/23 Unknown Rx carbidopa 25 mg-levodopa 100 mg 2 tab PO TID #540 tabs 12/18/23 Unknown Rx tablet flurbiprofen 100 mg tablet 100 mg PO TID PRN pain #90 tabs 12/18/23 Unknown Rx ascorbic acid (vitamin C) 1,000 mg 2 g PO Q8H 03/11/24 Unknown History tablet (C-1000) cholecalciferol (vitamin D3) 125 125 mcg PO DAILY 03/11/24 Unknown History mcg (5,000 unit) capsule dapagliflozin propanediol 5 mg 5 mg PO DAILY 03/11/24 Unknown History tablet (Farxiga) Allergy/AdvReac Type Severity Reaction Status Date / Time ciprofloxacin (From Cipro) Allergy Severe Anaphylaxis Verified 03/11/24 19:35 ciprofloxacin HCl (From Allergy Severe Anaphylaxis Verified 03/11/24 19:35 Cipro) Family History Mother CAD (coronary artery disease) Diverticula of intestine Father Cancer Uncle Parkinson's disease Other Alcoholism Arthritis Asthma Bleeding disorder CVA (cerebral vascular accident) Heart disease Hyperlipidemia Hypertension Myocardial infarction Surgical History H/O local excision of skin lesion Previous back surgery History of esophagogastroduodenoscopy (EGD) Hx of colonoscopy Hx of right knee surgery History of carpal tunnel surgery of right wrist History of carpal tunnel surgery of left wrist Hx of discectomy History of herniorrhaphy History of left heart catheterization (06/27/20) Social History Smoking Status: Never smoker Electronic Cigarette Use: not used second hand exposure: No alcohol intake: current alcohol intake frequency: a few times a month Alcohol type: beer substance use type: does not use what type of physical activity do you participate in: none leroy/gnosticist: Jain seatbelt use: always ROS ROS ED Constitutional Constitutional ED: Denies chills or fever(s) Eyes Eyes: Denies blurry vision or change in vision ENT ENT ED: Denies rhinorrhea or sore throat Cardiovascular Cardiovascular: Reports chest pain; Denies palpitations Respiratory/Chest Respiratory/Chest: Reports dyspnea; Denies cough Gastrointestinal Gastrointestinal: Denies nausea or vomiting Genitourinary Genitourinary ED: Denies dysuria or hematuria Musculoskeletal Musculoskeletal: Reports back pain and neck pain Integumentary Denies abscess or rash Neurologic Neurologic: Denies headache(s) or weakness Allergic/Immunologic Allergic/Immunologic ED: Denies mouth swelling or urticaria EXAM Physical Exam Const Vital Signs: 03/11/24 19:35 03/11/24 19:35 03/11/24 20:03 Temperature 97.1 F L Temperature Source Temporal Pulse Rate 76 Respiratory Rate 16 Respiratory Effort Normal Non-Labored Blood Pressure 127/82 H Blood Pressure Mean 97 Pulse Ox 99 95 Oxygen Delivery Method Room Air Room Air 03/11/24 20:35 03/11/24 21:00 03/11/24 22:00 Temperature Temperature Source Pulse Rate 68 65 72 Respiratory Rate 14 12 16 Respiratory Effort Blood Pressure 137/106 H 110/68 145/86 H Blood Pressure Mean 116 82 105 Pulse Ox 98 98 94 Oxygen Delivery Method Room Air Room Air Room Air Positive well nourished and well developed General Appearance ED: well developed and NAD HEENT Reports moist mucous membranes Neck supple and no JVD Chest Wall Chest Narrative: There is minimal reproducible tenderness of the left parasternal area along the costochondral junction. There is no bony crepitance or step-off. There is no subcutaneous emphysema palpated. Resp normal respiratory effort and clear to auscultation bilaterally Cardio regular rate GI soft to palpation, non-tender and non-distended Extremity normal to inspection General Extremety ED: Negative for edema or tenderness General Extremity: Negative for edema Neuro oriented x3 and CN's II-XII intact bilaterally Sensorium / Orientation: awake and alert Motor Exam: strength 5/5 throughout Psych mental status grossly normal Heart Score History: Slightly/Non-Suspicious ECG: Normal Age: >/= 65 years Risk Factors: 1 or 2 Risk Factors Troponin: </= Normal Limit Score: 3 MDM MDM MDM Narrative Medical decision making narrative: Differential diagnose includes cardiac dysrhythmia, cardiac ischemia, pneumonia, pulmonary embolism, electrolyte abnormality, gastroesophageal reflux disease, and anxiety. EKG will be obtained to assess for cardiac dysrhythmia and cardiac ischemia. Chest x-ray will be obtained to assess for pneumonia and pneumothorax. CBC will be obtained to assess for leukocytosis and anemia. Basic metabolic profile will be obtained to assess for electrolyte abnormality and renal function. High-sensitivity troponin will be obtained to assess for cardiac ischemia. 2-hour repeat high-sensitivity troponin will be obtained to assess for ongoing cardiac ischemia. D-dimer will be obtained to assess for pulmonary embolism. Lab Data Attestation: I reviewed the patient's lab results. Lab results narrative: CBC was reviewed and was within normal limits. Basic metabolic profile was reviewed and was essentially within normal limits. Initial high-sensitivity troponin was reviewed and was normal at 7. D-dimer was reviewed and was elevated at 1.42. 2-hour repeat high-sensitivity troponin was normal at 5. Labs: Laboratory Results - last 24 hr 03/11/24 03/11/24 18:51 22:12 WBC 11.0 RBC 4.69 Hgb 14.2 Hct 42.8 MCV 91.3 MCH 30.3 MCHC 33.2 RDW Std Deviation 48.7 H RDW Coeff of Leila 14.6 Plt Count 236 MPV 9.2 Immature Gran % (Auto) 0.700 Neut % (Auto) 69.9 Lymph % (Auto) 17.6 L Weber % (Auto) 6.9 Eos % (Auto) 4.3 Baso % (Auto) 0.6 Absolute Neuts (auto) 7.7 Absolute Lymphs (auto) 1.94 Nucleated RBC % 0 D-Dimer Quant (PE/DVT) 1.42 H* Sodium 137 Potassium 3.7 Chloride 108 H Carbon Dioxide 24.0 Anion Gap 6 BUN 25 H Creatinine 1.21 Estim Creat Clear Calc 62.39 Est GFR (MDRD) Af Amer 76 Est GFR (MDRD) Non-Af 63 BUN/Creatinine Ratio 20.7 H Glucose 135 H Calcium 8.8 Troponin I High Sens 7 5 Radiography Chest X-Ray - ED: 2 View, Read by ED Physician, Read by Radiologist and No Acute Disease Diagnostic Testing: Clinical Impression(s) from Imaging Studies Chest X-Ray 03/11/24 20:10 IMPRESSION: No acute cardiopulmonary disease. Electronically Signed: Renard Bull MD at 22:14 EDT , Chest CTA 03/11/24 21:50 IMPRESSION: CTA chest examination, without a demonstrated pulmonary embolism or arterial dissection. No focal infiltrate or edema. Electronically Signed: Renard Bull MD at 22:24 EDT , PA and lateral chest x-ray was obtained. There are 2 views. On my independent interpretation, lung baugh are clear. There is normal cardiac silhouette. Bony thorax is normal. There is no acute process noted. Radiologist also interpreted the x-ray and agrees. Because of the elevated D-dimer, CTA of the chest was obtained. There is no evidence of pulmonary embolism. There is no acute infiltrate. There is no aortic dissection noted. This was interpreted by the radiologist and was also independently reviewed by myself. EKG Initial EKG: Attestation: I personally reviewed and interpreted this EKG as follows: Interpretation: Sinus Rhythm and No Acute Injury Pattern Comments: EKG was obtained. On my independent interpretation, it showed a normal sinus rhythm with a rate of 72. RI interval, QRS interval, and QTc intervals were all normal. [place] was normal. There are no acute ST or T wave changes. Prior EKG tracings: available for review Prior: Unchanged (06/17/2020) Treatment and Re-Evaluation :: Patient was given aspirin. Patient was advised of his findings. Patient has a HEART score of 3. Patient was advised that this is low risk for acute cardiac event. Patient is feeling better on reevaluation. 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 Patient was instructed return if worse in any way. Patient understood and was agreeable with the plan. All questions were answered. Discharge Plan Triage Chief Complaint: Chest Pain ED Provider: Yariel Churchill Dx/Rx/DC Orders Clinical Impression: Chest pain, Essential (primary) hypertension Instructions: ED Chest Pain, Uncertain Cause Prescriptions: No Action omeprazole 40 mg capsule,delayed release(DR/EC) 40 mg PO DAILY loratadine [Claritin] 10 mg tablet 10 mg PO DAILY PRN (Reason: allergy symptoms) carbidopa-levodopa 25-100 mg tablet 2 tab PO TID Qty: 540 1RF flurbiprofen 100 mg tablet 100 mg PO TID PRN (Reason: pain) Qty: 90 4RF fluticasone propionate 1 SPRAY spray,suspension 2 spray NASAL DAILY PRN PRN (Reason: Cough/Congestion) Patient Comments: allergies dapagliflozin propanediol [Farxiga] 5 mg tablet 5 mg PO DAILY ascorbic acid (vitamin C) [C-1000] 1,000 mg tablet 2 g PO Q8H cholecalciferol (vitamin D3) 125 mcg (5,000 unit) capsule 125 mcg PO DAILY losartan 50 mg tablet 50 mg PO QDAY Qty: 90 3RF metoprolol succinate [Toprol XL] 25 mg tablet extended release 24 hr 25 mg PO DAILY Qty: 90 3RF amlodipine 10 mg tablet 10 mg PO DAILY Qty: 90 3RF rosuvastatin 5 mg tablet 5 mg PO DAILY Qty: 90 3RF Primary Care Provider: Prema Perez Referrals: Aristides Currie MD [Med Staff - Active Staff] - 5-7 Days Prema Perez DO [Primary Care Provider] - 5-7 Days Print Language: Japanese Disposition Disposition: Home, Self Care
--- NOTE | 2024-03-11 20:03 | EKG12_ITS ---
Test Reason : CP Blood Pressure : / mmHG Vent. Rate : 072 BPM Atrial Rate : 072 BPM P-R Int : 188 ms QRS Dur : 100 ms QT Int : 388 ms P-R-T Axes : 019 023 022 degrees QTc Int : 424 ms Normal sinus rhythm Normal ECG Confirmed by DION ROCHA, MELVA ([id number]), newspaper or periodical editor DYLAN HOGAN ([id number]) on 03/12/2024 9:25:53 AM Referred By: MATA Confirmed By:MELVA ASHLEY MD
--- NOTE | 2024-03-11 20:10 | RAD_ITS ---
STUDY: X-RAY CHEST REASON FOR EXAM: Male, 73 years old. Chest pain TECHNIQUE: PA and lateral views of the chest. COMPARISON: June 17, 2020 FINDINGS: The lungs are clear and expanded. There is no demonstrated pleural abnormality. Normal size heart. Normal mediastinum and mark. Normal visualized pulmonary arteries. Normal visualized aortic arch and descending thoracic aorta. There is arthritic change of the visualized thoracic spine. Normal visualized ribs, clavicles, and shoulders. There is no demonstrated abnormality of the visualized soft tissue structures of the upper abdomen. RAD/Chest PA and Lateral IMPRESSION: No acute cardiopulmonary disease. Electronically Signed: Renard Bull MD at 22:14 EDT ,
[2024-03-11 20:12] LABS: Absolute Lymphocyte Count 1.94 X10^3/uL (0.83-4.51); Absolute Neutrophil Count 7.7 X10^3/uL (2.0-7.7); Basophil# 0.07 X10^3/uL; Basophil% 0.6 % (0-1); Eosinophil# 0.47 X10^3/uL; Eosinophils% 4.3 % (0-5); Hematocrit 42.8 % (40-54); Hemoglobin 14.2 g/dL (13.0-16.5); Lymphocyte # 1.94 X10^3/ul (0.83-4.51); Lymphocyte % 17.6 % (19-41); Mean Corp Hgb Conc 33.2 g/dL (32-36); Mean Corpuscular Hgb 30.3 pg (27.0-32.0); Mean Corpuscular Volume 91.3 fL (80-94); Mean Platelet Vol. 9.2 fl (6.2-12.0); Monocyte# 0.76 X10^3/uL; Monocyte% 6.9 % (0-10); NRBC Flagged by Analyzer 0 % (0-5); Neutrophil # 7.71 X10^3/uL (2.7-7.7); Neutrophil % 69.9 % (47-70); Platelet Count 236 K/mm3 (150-450); RBC Distribution Width CV 14.6 % (11.6-14.6); RBC Distribution Width SD 48.7 fl (35.1-43.9); Red Blood Count 4.69 M/mm3 (4.6-6.2)
[2024-03-11] MEDS: Aspirin 81 MG TAB.CHEW 324 MG PO (20:27)
[2024-03-11 20:29] LABS: Anion Gap 6 (5-15); BUN 25 mg/dL (7-18); BUN/Creat Ratio 20.7 RATIO (10-20); Calcium,Total 8.8 mg/dL (8.5-10.1); Chloride 108 mmol/L (98-107); Creatinine, Serum 1.21 mg/dL (0.70-1.30); EST Glomerular Filtration Rate 63 mL/min (>60); Est Glom Filt Rate - Afr Amer 76 mL/min (>60); Estimated Creatinine Clearance 62.39 ml/min; Glucose 135 mg/dL (74-106); Potassium 3.7 mmol/L (3.5-5.1); Sodium Level 137 mmol/L (136-145); Troponin-I HS (w/2H Reflex) 7 pg/mL (3.0-78.0)
[2024-03-11 21:39] LABS: D-Dimer Quantitative (DVT/PE) 1.42 FEU/ug/m (0.27-0.49)
--- NOTE | 2024-03-11 21:50 | CT_ITS ---
STUDY: CTA CHEST REASON FOR EXAM: Male, 73 years old. Elevated D-dimer RADIATION DOSAGE (If Supplied By Facility): CTDIvol = ( 12.46 ) mGy, DLP = ( 548.57 ) mGycm TECHNIQUE: The examination was performed with the intravenous administration of 100mL Isovue-370. Post-processing of the angiographic images was performed, with multiplanar reformation and 3D reconstruction. Individualized dose optimization techniques were used for this CT. COMPARISON: Chest x-ray FINDINGS: Normal enhancement of the main pulmonary artery and right and left pulmonary arteries. Normal enhancement of the bilateral peripheral pulmonary arteries. There is no demonstrated pulmonary embolism. Normal thoracic aorta and visualized great vessels. There is no demonstrated aortic dissection. There are calcifications of the coronary arteries. Normal mediastinum. Normal hilar regions. Normal visualized trachea and bronchi. The lungs are well expanded. There is mild left lower lung atelectasis. Normal pleura. Normal chest wall structures. There is arthritic change of the thoracic spine. Normal visualized upper abdomen. CT/CTA Chest W/WO Contrast IMPRESSION: CTA chest examination, without a demonstrated pulmonary embolism or arterial dissection. No focal infiltrate or edema. Electronically Signed: Renard Bull MD at 22:24 EDT ,
[2024-03-11 22:08] LABS: Reflex Troponin-HS? (from REC) Y
[2024-03-11 22:35] LABS: Troponin-I HS 5 pg/mL (3.0-78.0)
== END 2024-03-11 23:10 | disposition home or self-care (01) ==
PROVIDERS: Emergency Provider Emergency Medicine; PCP Internal Medicine; Visit Provider Emergency Medicine
DX: R07.9 Chest pain, unspecified (principal); G20.A1 Parkinson's disease without dyskinesia, without mention of fluctuations; I48.91 Unspecified atrial fibrillation; E11.9 Type 2 diabetes mellitus without complications; G47.33 Obstructive sleep apnea (adult) (pediatric); Z99.89 Dependence on other enabling machines and devices; E78.5 Hyperlipidemia, unspecified; J45.909 Unspecified asthma, uncomplicated; Z79.51 Long term (current) use of inhaled steroids; K21.9 Gastro-esophageal reflux disease without esophagitis; Z79.899 Other long term (current) drug therapy
CPT/HCPCS: 71046; 71275; 80048; 84484; 85025; 85379; 93005; 99284; Q9967; A4216

== ENCOUNTER → 2024-06-01 | Outpatient (CLI) | payer MEDICARE, SELFPAY ==
--- NOTE | 2024-06-01 19:52 | MRI_ITS ---
STUDY: MRI LUMBAR SPINE WITHOUT CONTRAST REASON FOR EXAM: Male, 73 years old. LP; B leg weakness; tingling in feet; LLE radicula TECHNIQUE: Standardized fat and water weighted pulse sequences were obtained in the sagittal and axial planes. COMPARISON: None FINDINGS: No demonstrated marrow edema or fracture or compression deformity. No lytic or blastic/aggressive lesions are seen. No demonstrated evidence of vertebral osteomyelitis or discitis. Posterior surgical decompressive defects and scarring seen from L3 down L5-S1. Normal lumbar lordosis. There is a dextroscoliosis of the lumbar spine. Normal conus medullaris that terminates at the T12-L1 level. T12-L1: Moderate posterior disc space narrowing with a posterior disc osteophyte complex. Mild Modic endplate degenerative signal is present.. Normal bilateral facet joints. Normal central canal and bilateral lateral recesses. Normal bilateral intervertebral neural foramina. L1-2: Severe disc space narrowing with a diffuse disc osteophyte complex and midline subligamentous contained disc extrusion just below the disc space. Mild central canal stenosis. Moderate facet joint hypertrophy. Mild bilateral foraminal stenosis. L2-3: Mild to moderate disc space narrowing with a minor posterior disc spur complex. Mild facet joint hypertrophy. Normal central canal and bilateral lateral recesses. Normal bilateral intervertebral neural foramina. L3-4: Severe disc space narrowing with posterior disc osteophyte complex and shallow disc protrusion. Mild to moderate facet joint hypertrophy. Moderate bilateral foraminal stenosis with nerve root compression. Normal central canal and bilateral lateral recesses. L4-5: Severe disc space narrowing and moderate Modic endplate degenerative signal. Diffuse disc osteophyte complex. Moderate facet joint hypertrophy with mild bilateral foraminal stenosis with posterior nerve root impingement. Normal central canal and bilateral lateral recesses. L5-S1: Moderate disc space narrowing with a diffuse disc bulge/disc osteophyte complex. Mild to moderate facet joint hypertrophy with severe foraminal stenosis on the left at with nerve root compression. Mild right foraminal stenosis with posterior nerve root impingement. Normal central canal and bilateral lateral recesses. Normal visualized sacral ala. Normal visualized paraspinous soft tissue structures. MRI/Spine Lumbar (Routine) IMPRESSION: Multilevel degenerative changes, as described above. Electronically Signed: Guillermo Chris MD at 16:05 EST ,
== END | disposition home or self-care (01) ==
PROVIDERS: PCP Internal Medicine; Referring Provider Psychiatry & Neurology Neurology; Visit Provider Psychiatry & Neurology Neurology
DX: M54.50 Low back pain, unspecified (principal); M54.16 Radiculopathy, lumbar region

== ENCOUNTER 2024-07-21 10:00 | Outpatient (RCR) | payer MEDICARE, SELFPAY ==
--- NOTE | 2024-06-17 11:54 | HP.PTEVAL ---
Patient's Visit Information Visit Information Visit Information: LITZY PERAZA is a 73 year old M referred to Physical Therapy by Dr. Joaquin Gallegos MD with a diagnosis of LBP, Lumbar Radic. Date of Evaluation: 06/17/24 Physical Therapist: ALLEN Mccain Visit Plan Frequency: 2x /Week Duration: 2 Months Plan: Pt also has PD with flexed posture 2X/ week 8 weeks for stretching of the L-spine, core stability, Postural exercises, HS stretching, gait training with upright posture with HEP HEP: LTR, standing wall posture Subjective Subjective: He was Dx with spinal stenosis and some bulging discs and had a HD years before then. Now I am not a surgery candidate. He has had injections before and it did not help. He has back pain at the belt line across the back and he has some numbness in B feel and tingling and back of the calf and nothing in the thigh. They ruled out neuropathy. He had a recent MRI and Dr will not operate on him because it is not bad enough. He has narrowing of the spinal column. Walking hurts but it relieves it too. He can stand at the sink for 5 min and then has to go and sit down. He can sit for a long time and he is ok. His back pain does not wake him up and night. He is generally PD stiff in the morning. Pain Back pain: Pain Intensity (Out of 10): 1 Objective Objective: Gait: Walks with flexed trunk, decreased arm swing and step length, shuffled feet Pt was very tight with Supine trunk rotation Bridge: able to do 1/2 normal ROM Tight HS B but worse on the R. -SLR B Trunk AROM: flex 75, ext less than neutral, SB B 25% (very stiff) Wall posture: very rounded shoulders and FW head... feet approx 8 inches from the wall LE MMT: R hip flex 11.2 and L 7.3 R knee ext 20.7 and L 18.7 R knee flex 10.7 and L 7.5 Seated R hip abd 13 and L 10.2 Patellar DTR's 0/3 Supine to sit INDEP but did get dizzy when sitting up Balance/Special Test Scores Oswestry Low Back Score: 16 Goals Goal 1:: I HEP Goal Time Frame: 6-8 Weeks Goal 2:: Be able to stand at the sink greater than 5 min before having to sit down Goal Time Frame: 6-8 Weeks Goal 3:: Walk with more upright posture during treatment sessions Goal Time Frame: 6-8 Weeks Goal 4:: Improve B HS muscle length Goal Time Frame: 6-8 Weeks Rehabilitation Potential Rehabilitation Potential: Good Anticipated Interventions Patient/Client Instruction: Educate patient on: Condition and Plan of Care For the Purpose of:: To decrease pain, To increase ROM, To improve muscle performance and motor function, To improve ability to perform ADL's, To increase tolerance to activity/condition/position, To improve performance and independence with ADL's, To decrease level of supervision to perform tasks, To improve ability of physical actions for home/community/work/leisure, To improve gait and locomotor functions, To improve health of tissue, To decrease soft tissue restriction, To increase flexibility/ROM, To improve endurance and To improve safety with gait Therapeutic Exercise to Include: Strength training, Endurance training, Body mechanics, Postural training, Flexibilty training, Gait and locomotor training, Neuromotor development, Active ROM, Dynamic Lumbar Stabilization and Scapular Strength/Stabilization For the Purpose of:: To decrease pain, To increase ROM, To improve nutrient delivery to tissue, To improve muscle performance and motor function, To improve ability to perform ADL's, To increase tolerance to activity/condition/position, To improve performance and independence with ADL's, To decrease level of supervision to perform tasks, To improve ability of physical actions for home/community/work/leisure, To improve gait and locomotor functions, To improve health of tissue, To decrease soft tissue restriction and To increase flexibility/ROM Functional Training to Include: Gait training For the Purpose of:: To improve gait and locomotor functions Text: Thank you for the opportunity to evaluate your patient. For Medicare and Medicare HMO plans, please review the plan of care and approve it. It will need to be FAXED BACK to us at [phone] for Medicare purposes. For Medicare only, by signing this I certify the plan of care. Please let me know if there are questions or concerns regarding this plan of care. Physician Signature: Date:
--- NOTE | 2024-07-21 10:23 | HP.PTDCSUM ---
Discharge Summary D/C summary: It has been my pleasure to treat LITZY PERAZA referred by Dr. Joaquin Gallegos MD, with the diagnosis of LBP, Lumbar Radic for a total of 9 visit(s). Discharge Date: 07/21/24 Please see the following information for a summary of their discharge status. Subjective Subjective: Pt feels that he is better. He thinks that he can continue with his HEP and work the rest out at home. Pain Back pain: Pain Intensity (Out of 10): 3 neck pain: Pain Intensity (Out of 10): Unrated Overall Improvement % Improvement: 70 Objective Objective/Function: Pt reports that he feels comfortable doing his HEP and feels comfortable doing some machines also Goals Goal 1:: I HEP Goal Progress: Goal Met Goal 2:: Be able to stand at the sink greater than 5 min before having to sit down Goal Progress: Progressing Goal 3:: Walk with more upright posture during treatment sessions Goal Progress: Progressing Goal 4:: Improve B HS muscle length Goal Progress: Goal Met Plan Plan: DC PT to HEP D/C Information Discharge Comments: DC PT to HEP d/c sentence: If there are questions or concerns regarding this patient's physical therapy, please feel free to call me at [phone]. Thank you for the referral of this patient. Sincerely, Mirela Mary, ALLEN Balance/Gait/Functional tests Balance/Special Test Scores Oswestry Low Back Score: 8 Improvement % Improvement: 70
== END 2024-07-21 19:00 | disposition home or self-care (01) ==
LOC: PT 10:00
PROVIDERS: PCP Internal Medicine; Visit Provider Psychiatry & Neurology Neurology
DX: M54.16 Radiculopathy, lumbar region (principal)
CPT/HCPCS: 97110; 97161; 97530

== ENCOUNTER → 2024-10-07 | Outpatient (CLI) | payer MEDICARE, SELFPAY ==
[2024-10-08 11:06] LABS: PSA,Total- Diagnostic 4.94 ng/mL (0.00-4.00)
== END | disposition home or self-care (01) ==
LOC: LAB 13:09
PROVIDERS: PCP Internal Medicine; Referring Provider Urology; Visit Provider Urology
DX: R97.20 Elevated prostate specific antigen [PSA] (principal)
CPT/HCPCS: 36415; 84153

== ENCOUNTER → 2025-03-30 | Outpatient (CLI) | payer MEDICARE, SELFPAY | END | disposition home or self-care (01) | LOC: LABSPEC 15:25 | PROVIDERS: PCP Internal Medicine; Referring Provider Urology; Visit Provider Urology | DX: N30.01 Acute cystitis with hematuria (principal) | CPT/HCPCS: 87077; 87086; 87088; 87186 ==

== ENCOUNTER → 2025-03-30 | Outpatient (CLI) | payer MEDICARE, SELFPAY ==
--- NOTE | 2025-03-30 08:56 | CT_ITS ---
PROCEDURE: ABDOMEN/PELVIS WITHOUT CONT 03/30/2025 REASON FOR EXAM: HEMATURIA TECHNIQUE: Procedure Code: [id number] Modality: CT Procedure: ABDOMEN/PELVIS WITHOUT CONT Noncontrast technique limits evaluation of the abdominal and pelvic viscera. Coronal and Sagittal reconstruction series were provided. One or more dose reduction techniques were used (e.g., Automated exposure control, adjustment of the mA and/or kV according to patient size, use of iterative reconstruction technique). RADIATION DOSE SUMMARY: CTDlvol: 11 mGy DLP: 543 mGycm COMPARISON: June 16, 2021 FINDINGS: Lung bases: Clear Liver: Normal Gallbladder: Normal Spleen: Normal Pancreas: Normal Adrenals: Normal Kidneys: Punctate high density at the right upper pole may represent a tiny calculus. Otherwise, no calculi, collecting system dilation or large mass seen. Bladder: Normal. Pelvic phleboliths are seen. Reproductive Organs: Prostate is mildly enlarged. Bowel: Scattered colonic diverticulosis is shown without diverticulitis. Modest amount of formed stool is shown throughout nondistended colon. Small bowel is normal caliber. Stomach is normal. Appendix: Normal Lymph nodes: None appear enlarged. Vasculature: Mild atherosclerotic plaque without aneurysm. Peritoneum / Retroperitoneum: No free air, free fluid or mass. Bones: Decreased bone mineralization. Ankylosis right SI joint. Severe lower lumbar facet hypertrophy. Prior laminectomy L4 and L5. Multilevel degenerative disc disease with bridging osteophytes. CT/Abdomen/Pelvis without Cont IMPRESSION: 1. No acute abnormality. 2. Possible punctate nonobstructing calculus right upper pole of the kidney. 3. Diverticulosis without diverticulitis. Modest amount of formed stool throu ghout nondistended colon. Correlate with constipation. 4. Mild prostate enlargement correlate with PSA, lower urinary tract symptoms. 5. Thoracic and lumbar degenerative disc disease. Remote prior lower lumbar s urgery. Reading Location: [id number]
== END | disposition home or self-care (01) ==
PROVIDERS: PCP Internal Medicine; Referring Provider Urology; Visit Provider Urology
DX: N40.0 Benign prostatic hyperplasia without lower urinary tract symptoms (principal); N30.01 Acute cystitis with hematuria
CPT/HCPCS: 74176